=== PATIENT | male | born 1960 ===

== ENCOUNTER 2023-09-17 09:32 | Inpatient (IN) | payer MEDICARE, SELFPAY ==
--- NOTE | 2023-07-23 09:08 | CM ---
Addendum entered by Nga Vicente 09/12/23 08:41:
Patient's surgery date has changed to 09/17/23. Spoke again with patient. He states that he is using a cane currently and no longer has a rolling walker. He will obtain a walker from [facility]. He continues to state that he will need VN services.
Original Note:
Patient is scheduled for an elective R TKR on 08/06/23. Spoke with patient prior to surgery via telephone. Introduced role of Orthopedic Navigator. Patient reports that he lives alone in a one floor condo. There are no steps to enter and building is
elevator accessible. He currently functions independently and uses either a cane or rolling walker. He has no other DME. He has had VN services in the past. PCP is Dr. Tony Abad.
Discussed orthopedic program and post surgical plans. Reviewed anticipated length of stay and that goal is for home to return home at discharge. Also reviewed outpatient PT. Patient is in agreement with tentative plan but will not have
transportation for outpatient PT and will need VN services. He will not have anyone staying with him when he goes home.
Patient will complete online education.
Plan: Orthopedic Navigator will remain available to assist with the care of patient and will reassess discharge needs after surgery.
[2023-07-26 12:58] VITALS: BMI 34.2
[2023-07-26 13:48] LABS: Hematocrit 45.1 % (39.0-52.0); Hemoglobin 16.1 g/dL (13.0-18.0); Mean Corp Hgb Conc. 35.7 g/dL (33.0-37.0); Mean Corpuscular Hgb 30.8 pg (27.0-31.0); Mean Corpuscular Volume 86.2 fL (80.0-94.0); Platelet Count 153 10^3/uL (130-400); Red Blood Cell Count 5.23 10^6/uL (4.70-6.10); Red Cell Dist. Width 12.4 % (11.5-14.5); White Blood Cell Count 5.1 10^3/uL (4.8-10.8)
[2023-07-26 14:03] LABS: Glycohemoglobin (HgbA1c) 6.3 % (4.0-5.6)
[2023-07-26 14:05] LABS: ALT (SGPT) 23 U/L (0-50); AST (SGOT) 37 U/L (17-59); Albumin 4.8 g/dl (3.5-5.0); Alkaline Phosphatase 52 U/L (38-126); Blood Urea Nitrogen 25 mg/dl (9-20); Calcium 9.8 mg/dl (8.4-10.2); Carbon Dioxide 26 mmol/L (22-30); Chloride 99 mmol/L (98-107); Estimated Creatinine Clearance 93 ml/min; Glucose 155 mg/dl (70-99); Potassium 4.3 mmol/L (3.5-5.1); Sodium 137 mmol/L (135-145); Total Bilirubin 1.4 mg/dl (0.2-1.3); Total Protein 7.6 g/dl (6.3-8.2); eGFR > 60.00
[2023-07-26 15:48] VITALS: BMI 34.2
--- NOTE | 2023-07-30 09:37 | SLEEP.APNEA ---
Sleep Apnea Order
-
Patient screened as High Risk for Sleep Apnea on Stop Bang Questionnaire. Patient referred to [facility] for Pre-Study.

Name: MAIKEL SINHA
: 1960
Home Phone: Use [employer].PrimaryPhone instead
Cell Phone: [f_Reg Other Phone]
Work Phone:
Address: [address] [place] [address]
City: [place]
State: [place]
Zip: [f_[facility] Zip]
Family Physician: Tony Abad
Height 5 ft 10 in
Actual Weight 108 kg
Body Mass Index (BMI) 34.2
Ordering Provider: Malinda Chao PA-C
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
[2023-09-17] VITALS (13 sets, daily range): BP systolic 93–128; BP diastolic 56–72; PULSE 81; BMI 34.2
[2023-09-17] MEDS: NORMOSOL-R 1000 IV ×2 (09:18→12:52)
[2023-09-17] MEDS: VANCOCIN 300 MG IV (09:44)
[2023-09-17] MEDS: VANCOCIN 300 ML IV (09:44)
[2023-09-17] MEDS: ROXICODONE 5 MG PO (13:57)
--- NOTE | 2023-09-17 14:45 | PTCARENOTE ---
Pt arrived to [facility] [address] from PACU s/p R TKR. R Knee Aquacel C/D/I, NV intact with mild sensation loss-spinal still wearing off. IVF infusing. Pt states no pain at this time. Pt oriented to call [place] and room, bed locked and in lowest position, call
[place] within reach.
[2023-09-17] MEDS: TYLENOL PO ×2 (15:04→15:35)
[2023-09-17] MEDS: PROZAC 20 MG PO (15:32)
[2023-09-17] MEDS: NEURONTIN 300 MG PO (15:33)
[2023-09-17] MEDS: ROXICODONE 10 MG PO ×2 (16:17→20:30)
[2023-09-17] MEDS: ASPIRIN 325 MG PO (17:14)
[2023-09-17] MEDS: ANCEF 5 IV (19:10)
[2023-09-17] MEDS: SENOKOT 17.1999999999999993 MG PO (19:16)
[2023-09-17] MEDS: BACTROBAN 2% OINTMENT 1 APPLIC NASAL (19:16)
[2023-09-17] MEDS: COLACE 100 MG PO (19:16)
[2023-09-17] MEDS: KLONOPIN 1 MG PO (19:17)
[2023-09-17] MEDS: KEPPRA 1500 MG PO (19:17)
[2023-09-17] MEDS: DECADRON 4 MG PO (19:17)
[2023-09-17] MEDS: TYLENOL 650 MG PO (19:18)
[2023-09-17] MEDS: NEURONTIN 1200 MG PO (21:50)
[2023-09-17] MEDS: PROTONIX 40 MG PO (21:52)
[2023-09-17] MEDS: DILAUDID 0.5 MG IV (21:52)
[2023-09-17] MEDS: FLOMAX 0.400000000000000022 MG PO (21:52)
--- NOTE | 2023-09-17 22:20 | PTCARENOTE ---
pt premedicated prior to ambulating the halls w/RW under nursing supervision. reviewed proper technique.
[2023-09-18] MEDS: ROXICODONE 10 MG PO ×3 (00:13→08:33)
[2023-09-18] MEDS: TYLENOL 650 MG PO ×3 (00:13→08:30)
[2023-09-18 03:43] VITALS: BP 108/51
[2023-09-18] MEDS: ANCEF 5 IV (04:21)
[2023-09-18] MEDS: DILAUDID 0.5 MG IV (05:05)
[2023-09-18] MEDS: SYNTHROID 50 MCG PO (05:05)
[2023-09-18 07:34] VITALS: BP 117/65
[2023-09-18] MEDS: SENOKOT 17.1999999999999993 MG PO (08:30)
[2023-09-18] MEDS: KLONOPIN 1 MG PO (08:30)
[2023-09-18] MEDS: COLACE 100 MG PO (08:30)
[2023-09-18] MEDS: BACTROBAN 2% OINTMENT 1 APPLIC NASAL (08:30)
[2023-09-18] MEDS: KEPPRA 1500 MG PO (08:30)
[2023-09-18] MEDS: PROZAC 20 MG PO (08:31)
[2023-09-18] MEDS: DECADRON 4 MG PO (08:31)
[2023-09-18] MEDS: ASPIRIN 325 MG PO (08:31)
[2023-09-18] MEDS: NEURONTIN 300 MG PO (08:31)
[2023-09-18] MEDS: PROZAC 40 MG PO (08:31)
--- NOTE | 2023-09-18 08:37 | CM ---
Addendum entered by Nga Vicente 09/18/23 11:35:
Patient did well in therapy. He has no concerns about going home.
Addendum entered by Nga Vicente 09/18/23 08:39:
Discharge plans were reviewed with patient's friend, Yen, on 09/17/23.
Original Note:
Reviewed chart and held rounds with PT, OT and nursing. Patient admitted as planned for elective R TKR. Met with patient at bedside. Confirmed information previously obtained for assessment. Also discussed discharge plans. The plan is for patient to
return home at discharge. His friend, Yen, will be staying with him for two days. Reviewed VN services including start of care (tentatively 09/19), services to be ordered (PT, SN) and frequency/duration of services. Options list provided and PAC
data reviewed. Patient selects VN.
Patient has a rolling walker and a cane at home.
VN referral was completed and sent to [facility] through [employer] with request for start of care on 09/19. Confirmation received of their ability to accept case. file clerk to fax discharge instructions to [facility] when complete.
Patient will use [facility] for discharge prescriptions.
[2023-09-18 09:30] VITALS: BP 123/56; PULSE 73
--- NOTE | 2023-09-18 09:38 | W.PN.ORTHO ---
Today's Communication / Plan
-
d/c
Assessment
.
Distal Motor Intact: Yes
Dressing:
Clean, dry and intact.
Assessment:
Chronic pain-on Subtex-continue home regimen and prn Oxy--pain well controlled
Plan
.
Surgery / Date: O/A s/p R TKA Dr. Kendall 09/17/23
DVT Prophylaxis: Aspirin
Activity:
Out of bed.
PT/OT
Discharge Plan: Home w/ VN
Subjective
.
.:
Patient resting comfortably.
Vital Signs and Labs
.
Vital Signs and Labs:
Lab Results
07/26/23 12:41
07/26/23 12:41
Temp Pulse Resp BP Pulse Ox
97.6 F 69 19 117/65 98
09/18/23 07:34 09/18/23 07:34 09/18/23 07:34 09/18/23 07:34 09/18/23 08:00
Non-invasive Hgb result: 14.0
Physical Exam
-
HEENT: No pallor, cyanosis, or jaundice. Throat clear.
NECK: Supple. No JVD.
RESPIRATORY: Lungs clear to auscultation.
CVS: S1, S2 normal. RRR.� No murmur, rub or gallop.
ABDOMEN: Soft, non-tender. No distension. BS+/normal.
EXTREMITIES: strength equal, no calf pain with palpation
BOTTLE CAPPING MACHINE OPERATOR: AOx3. No focal deficits. materials handler grossly intact
--- NOTE | 2023-09-18 09:49 | W.DS.TRANS ---
DC Summary - School Library Media Specialist
-
Discharge Instructions:
Sleep Apnea Risk High
Discharge Diagnosis/Procedures O/A s/p R TKA Dr. Kendall 09/17/23
Diet As tolerated
Activity With Walker
Driving Restrictions No driving
Bathing Restrictions OK to Shower
Other Services PT,VN
Instructions:
Stand-Alone Forms: Total Hip/Knee Replacement D/C
Changes to Home Medications: Yes
Discharge Medications:
DC Medications w/original date entered in [employer]
clonazepam 1 mg tablet 1 mg PO BID 07/23/23
fluoxetine 20 mg capsule (Prozac) 20 mg PO DAILY 07/23/23
fluoxetine 40 mg capsule (Prozac) 40 mg PO DAILY 07/23/23
gabapentin 300 mg capsule 1,200 mg PO HS 07/23/23
gabapentin 300 mg capsule 300 mg PO BID 07/23/23
levetiracetam 1,000 mg tablet (Keppra) 1,500 mg PO BID 07/23/23
levothyroxine 50 mcg tablet 50 mcg PO DAILY@0700 07/23/23
pantoprazole 40 mg tablet,delayed release (Protonix) 40 mg PO DAILY 07/23/23
rizatriptan 5 mg tablet 5 mg PO PRN PRN Migraines 07/23/23
sucralfate 1 gram tablet (Carafate) 1 g PO BID 07/23/23
tamsulosin 0.4 mg capsule (Flomax) 0.4 mg PO HS 07/23/23
mupirocin 2 % topical ointment 1 applic topical BID infection prevention #1 tube 07/26/23
buprenorphine 8 mg-naloxone 2 mg sublingual tablet 1 tab sublingual DAILY 09/12/23
Saccharomyces boulardii 250 mg capsule (Florastor) 250 mg PO BID #1 cap 09/18/23
aspirin 325 mg tablet 325 mg PO DAILY blood clot prevention #1 tab 09/18/23
cefadroxil 500 mg capsule 500 mg PO BID infection prevention #14 caps 09/18/23
docusate sodium 100 mg capsule (Colace) 100 mg PO BID stool softner #1 cap 09/18/23
magnesium hydroxide 400 mg/5 mL oral suspension (Milk of Magnesia) 30 ml PO HS PRN Constipation #1 mL 09/18/23
oxycodone 15 mg tablet 15 mg PO Q6H PRN MODERATE-SEVERE PAIN #60 tabs 09/18/23
sennosides 8.6 mg tablet (Senokot) 17.2 mg PO BID laxative #2 tabs 09/18/23
Home Medication Changes
cefadroxil 500 mg capsule 500 mg PO BID infection prevention #14 caps 09/18/23
Pending Results: No
[2023-09-18 11:20] VITALS: BP 108/65; PULSE 87; O2SAT 98
== END 2023-09-18 12:16 | disposition home health service (06) | DRG 470 ==
LOC: 2 SOUTH 09:32
PROVIDERS: ADMITTING PHYSICIAN Specialist; FAMILY PHYSICIAN Family Medicine Sports Medicine
PROC: 0SRC0J9 Replacement of Right Knee Joint with Synthetic Substitute, Cemented, Open Approach (ICD-10-PCS; 2023-09-17)
DX: M17.11 Unilateral primary osteoarthritis, right knee (principal); Z68.34 Body mass index [BMI] 34.0-34.9, adult; E66.9 Obesity, unspecified; Z87.01 Personal history of pneumonia (recurrent); K21.9 Gastro-esophageal reflux disease without esophagitis; F43.10 Post-traumatic stress disorder, unspecified; G62.9 Polyneuropathy, unspecified; G40.909 Epilepsy, unspecified, not intractable, without status epilepticus; K75.81 Nonalcoholic steatohepatitis (NASH); E03.9 Hypothyroidism, unspecified; Z85.46 Personal history of malignant neoplasm of prostate; Z92.21 Personal history of antineoplastic chemotherapy; Z92.3 Personal history of irradiation; Z86.14 Personal history of Methicillin resistant Staphylococcus aureus infection; G89.29 Other chronic pain; F32.A Depression, unspecified
CPT/HCPCS: 36415; 73560; 80053; 83036; 85027; 87070; 93005; 97116; 97162; 97166; 97530; C1713; C1776

== ENCOUNTER 2023-11-13 15:15 | Emergency (ER) | payer MEDICARE, SELFPAY ==
[2023-11-13 15:21] VITALS: BP 149/122; BMI 33.4
[2023-11-13 15:38] LABS: Urine Albumin Negative (Neg - Trace); Urine Bilirubin Negative (Negative); Urine Character Clear (Clear); Urine Color Yellow; Urine Glucose Negative (Negative); Urine Ketone Negative (Negative); Urine Leukocyte Negative (Negative); Urine Nitrite Negative (Negative); Urine Occult Blood Negative (Negative); Urine Urobilinogen 2+ (Neg - 1+)
--- NOTE | 2023-11-13 16:04 | ED.GENMED ---
History of Present Illness
General
Chief Complaint: Back Pain
Source: patient
Exam Limitations: none
Time Seen by Provider: 11/13/23 15:38
Travel History
Have you had any contact with someone who has COVID-19?: No
Do you have any symptoms of coronavirus? Fever > 100 degrees, chills, cough, shortness of breath, sore throat, loss of taste or smell, muscle aches, or headache?: No
History of Present Illness
History of Present Illness:
63-year-old male presents with complaints of intermittent pain to the right flank over the past several days. It is a spasm-like pain. Occasionally goes down his leg. No associated urinary symptoms. No fever. No chest pain or shortness of
breath. He has a history of neuropathy. He is on Subutex. He is on gabapentin. He has a remote history of kidney stones and this feels somewhat similar. No other complaints at this time
Phy Exam
Physical Exam
Physical Exam:
General: Uncomfortable appearing male no acute respiratory distress
HEENT: Normocephalic atraumatic
Heart: Regular rate and rhythm no murmurs
Lungs: Clear to bilaterally no wheezing
Musculoskeletal exam: Right costovertebral angle is tender. No significant midline tenderness. Good range of motion to the lower extremities
Abdomen is soft mildly tender to the right mid abdomen no guarding or rebound
Course
Orders/Labs/Results
Orders:
Orders
11/13/23 15:29
Urinalysis Reflex To Culture Urgent
Date Specimen was Collected: 11/13/23
Time Specimen was Collected: 15:28
11/13/23 15:47
CT Abd/pel Without Iv Or Oral Urgent
Comment:
Reason For Exam: right flank pain
HYDROmorphone [Dilaudid] 1 mg IV NOW STA
11/13/23 16:08
Complete Blood Count/With Diff Urgent
Comprehensive Metabolic Panel Urgent
11/13/23 16:37
diazePAM [Valium Injection] 5 mg IV NOW STA
11/13/23 18:20
Dexamethasone Sod Phosphate [Decadron] 10 mg IV NOW STA
HYDROmorphone [Dilaudid] 1 mg IV NOW STA
Abnormal Lab Results
11/13/23 11/13/23
15:29 16:08
WBC 4.4 L 10^3/uL
(4.8-10.8)
Plt Count 127 L 10^3/uL
(130-400)
MPV 11.4 H fL
(7.4-10.4)
BUN 23 H mg/dl
(9-20)
Glucose 140 H mg/dl
(70-99)
Urine Urobilinogen 2+ A
(Neg - 1+)
11/13/23 16:08
11/13/23 16:08
Vital Signs
Initial and Last Documented VS:
Initial Vital Signs
Temp Pulse Resp BP Pulse Ox
98.5 F 74 18 149/122 98
11/13/23 15:21 11/13/23 15:21 11/13/23 15:21 11/13/23 15:21 11/13/23 15:21
Last Documented Vital Signs
Temp Pulse Resp BP Pulse Ox
98.6 F 70 16 118/79 98
11/13/23 17:37 11/13/23 17:37 11/13/23 17:37 11/13/23 17:37 11/13/23 17:37
MDM/Problems Addressed
Differential Diagnosis Includes:
Patient with intermittent right flank pain. Consider renal colic versus musculoskeletal flank pain radiculopathy. No rash to suggest shingles.
He has good pulses on exam to the lower extremities. Do not suspect vascular compromise to the legs
Will check CT of the abdomen and pelvis check urine and labs. Patient is unable to tolerate Tylenol or NSAIDs. He is in significant pain.
*Critical Care Note
Total Time (30-74mins, 75-104mins- exclusive of procedures): Not Applicable
Update Note
Update Note:
CT negative for acute finding other than a large amount of stool throughout the colon. There is a rim calcified cyst in the superior dome of the liver. No ureterolithiasis. Patient still in significant pain. Will try 1 more round of pain
medicine with steroid. Suspect now muscular versus radicular pain.
ED Attending Note
-
Portions of this chart may have been created with voice recognition software.� Occasional wrong word or��sound alike� substitutions may have occurred due to the inherent limitations of voice recognition software.
Discharge Plan
Departure
Patient Disposition: Home (Routine Discharge)
Date of Disposition: 11/13/23
Time of Disposition: 18:33
Patient with high blood pressure during this ER visit?: No
Discharge Problem:
Low back pain
Instructions: Low Back Pain (DC), Radiculopathy (DC)
Prescriptions:
New
prednisone 10 mg Tablet
See Rx Instructions .ROUTE .COMPLEX Qty: 30 0RF
Rx Instructions:
Take By Mouth:
40 mg daily x3 days, 30 mg daily x3 days,
20 mg daily x3 days, 10 mg daily x3 days.
No Action
fluoxetine [Prozac] 40 mg Capsule
40 mg PO DAILY
Rx Instructions:
total 60 mg daily
sucralfate [Carafate] 1 gram Tablet
1 g PO BID
clonazepam 1 mg Tablet
1 mg PO BID
Patient Comments:
takes with Keppra
tamsulosin [Flomax] 0.4 mg Capsule
0.4 mg PO HS
levothyroxine 50 mcg Tablet
50 mcg PO DAILY@0700
pantoprazole [Protonix] 40 mg Tablet,Delayed Release (Dr/Ec)
40 mg PO DAILY
gabapentin 300 mg Capsule
900 mg PO BID
Patient Comments:
0800;1400
gabapentin 300 mg Capsule
1,200 mg PO HS
fluoxetine [Prozac] 20 mg Capsule
20 mg PO DAILY
Rx Instructions:
total 60mg daily
rizatriptan 5 mg Tablet
5 mg PO PRN MDD 20 mg PRN (Reason: Migraines)
Patient Comments:
Q2 hrs- max 4 tabs
levetiracetam [Keppra] 1,000 mg Tablet
1,500 mg PO BID
buprenorphine-naloxone 8-2 mg Tablet, Sublingual
1 tab SUBLINGUAL DAILY
Patient Comments:
'took 4 mg this am'
sennosides [Senokot] 8.6 mg tablet
17.2 mg PO BID Qty: 2 0RF
magnesium hydroxide [Milk of Magnesia] 400 mg/5 mL suspension
30 ml PO HS PRN (Reason: Constipation) Qty: 1 0RF
docusate sodium [Colace] 100 mg capsule
100 mg PO BID Qty: 1 0RF
cefadroxil 500 mg capsule
500 mg PO BID Qty: 14 0RF
Rx Instructions:
*Take w/ food
*Take w/ probiotic
*POST-OP USE
Referrals:
Tony Abad DO [Family Provider] -
Interventions
Interventions:
*Risk Screen - Suicide Last Done: 11/13/23 15:21
*General Assessment Last Done: 11/13/23 15:21
*Neglect/Abuse Screening Last Done: 11/13/23 15:21
*ED COVID-19 Vaccine History Last Done: 11/13/23 15:21
ED-Musculoskeletal Assessment Last Done: 11/13/23 18:23
[2023-11-13] MEDS: DILAUDID 1 MG IV ×2 (16:08→18:31)
[2023-11-13 16:30] LABS: % Basophils 0.9 % (0-2); % Immature Granulocytes 0.2 % (0-0.5); % Lymphocytes 28.1 % (20.5-51.1); % Monocytes 8.8 % (1.7-9.3); Absolute Eosinophils 0.2 10^3/uL (0-0.7); Absolute Lymphocytes 1.2 10^3/uL (1.2-3.4); Absolute Monocytes 0.4 10^3/uL (0.1-0.6); Absolute Neutrophils 2.5 10^3/uL (1.4-6.5); Hematocrit 41.2 % (39.0-52.0); Hemoglobin 14.3 g/dL (13.0-18.0); Mean Corp Hgb Conc. 34.7 g/dL (33.0-37.0); Mean Corpuscular Volume 86.6 fL (80.0-94.0); Mean Platelet Volume 11.4 fL (7.4-10.4); Nucleated Red Blood Cells % 0 % (-); Platelet Count 127 10^3/uL (130-400); Red Blood Cell Count 4.76 10^6/uL (4.70-6.10); Red Cell Dist. Width 12.2 % (11.5-14.5); White Blood Cell Count 4.4 10^3/uL (4.8-10.8)
[2023-11-13 16:41] LABS: ALT (SGPT) 15 U/L (0-50); AST (SGOT) 24 U/L (17-59); Albumin 4.5 g/dl (3.5-5.0); Alkaline Phosphatase 69 U/L (38-126); Blood Urea Nitrogen 23 mg/dl (9-20); Calcium 9.9 mg/dl (8.4-10.2); Carbon Dioxide 28 mmol/L (22-30); Chloride 99 mmol/L (98-107); Estimated Creatinine Clearance 89 ml/min; Glucose 140 mg/dl (70-99); Potassium 3.9 mmol/L (3.5-5.1); Sodium 135 mmol/L (135-145); Total Bilirubin 0.6 mg/dl (0.2-1.3); eGFR > 60.00
[2023-11-13] MEDS: VALIUM INJECTION 5 MG IV (16:41)
[2023-11-13 17:37] VITALS: BP 118/79
[2023-11-13] MEDS: DECADRON 10 MG IV (18:31)
[2023-11-13 18:59] VITALS: BP 119/79
== END 2023-11-13 18:59 | disposition home or self-care (01) ==
LOC: EMR 15:15
PROVIDERS: Emergency Medicine; Physician Assistant; EMERGENCY PHYSICIAN Emergency Medicine; FAMILY PHYSICIAN Family Medicine Sports Medicine
DX: M54.50 Low back pain, unspecified (principal); K76.89 Other specified diseases of liver; Z87.442 Personal history of urinary calculi
CPT/HCPCS: 99284; 96374; 96375 ×2; 96376; 74176; 80053; 81003; 85025

== ENCOUNTER 2023-12-03 06:14 | Inpatient (IN) | payer MEDICARE, SELFPAY ==
--- NOTE | 2023-11-08 13:01 | CM ---
Patient is scheduled for an elective L TKR on 12/03/23. Spoke with patient prior to surgery via telephone. Patient had a R TKR at in August 2023. Reintroduced role of Orthopedic Navigator. Patient reports that he lives alone in a one floor condo.
There are no steps to enter and building is elevator accessible. He currently functions independently and uses a cane. He also has a rolling walker. He had VN services through [facility]N after his prior TKR.
Discussed orthopedic program and post surgical plans. Reviewed anticipated length of stay and that goal is for home to return home at discharge. Also reviewed outpatient PT. Patient is in agreement with tentative plan but will not have
transportation for outpatient PT and will need VN services. Reviewed options and PAC data and he selects VN. His friend, Yen, will stay with him when he goes home.
Patient does not need to complete online education.
Plan: Orthopedic Navigator will remain available to assist with the care of patient and will reassess discharge needs after surgery.
[2023-11-16 13:33] LABS: Hematocrit 41.1 % (39.0-52.0); Hemoglobin 14.6 g/dL (13.0-18.0); Mean Corp Hgb Conc. 35.5 g/dL (33.0-37.0); Mean Corpuscular Hgb 30.7 pg (27.0-31.0); Mean Corpuscular Volume 86.3 fL (80.0-94.0); Mean Platelet Volume 11.9 fL (7.4-10.4); Platelet Count 138 10^3/uL (130-400); Red Blood Cell Count 4.76 10^6/uL (4.70-6.10); Red Cell Dist. Width 12.5 % (11.5-14.5)
[2023-11-16 13:46] LABS: ALT (SGPT) 18 U/L (0-50); AST (SGOT) 24 U/L (17-59); Albumin 4.7 g/dl (3.5-5.0); Alkaline Phosphatase 89 U/L (38-126); Blood Urea Nitrogen 25 mg/dl (9-20); Calcium 9.5 mg/dl (8.4-10.2); Carbon Dioxide 23 mmol/L (22-30); Chloride 101 mmol/L (98-107); Glucose 247 mg/dl (70-99); Potassium 3.7 mmol/L (3.5-5.1); Sodium 133 mmol/L (135-145); Total Bilirubin 0.7 mg/dl (0.2-1.3); Total Protein 7.4 g/dl (6.3-8.2); eGFR > 60.00
--- NOTE | 2023-11-30 12:21 | W.PREADMORTH ---
Ortho Preadmission Testing
-
Late entry - did discuss the patient's elevated A1c with him over the phone pre-operatively.
Although I believe recent steroid use from chronic back pain likely drove up his A1c, I did ask the patient about his overall diet.
He did admit to eating a 'whole cheesecake' weekly and to consuming 2-3 Snapple peach ice teas daily.
Pt said hes not entirely surprised his A1c is the way it is.
He is very motivated to adjust his diet and follow a strict carb controlled diet marguerite-op.
I did also discuss his A1c w/ his PCP. He would prefer dietary management at this time over initiating diabetic meds.
[2023-12-03] VITALS (12 sets, daily range): BP systolic 105–136; BP diastolic 64–81; PULSE 89; O2SAT 95
[2023-12-03 07:26] LABS: Glucose - Point of Care 158 mg/dl (70-99)
[2023-12-03] MEDS: NEURONTIN 900 MG PO ×2 (07:45→14:12)
[2023-12-03] MEDS: NORMOSOL-R 1000 IV (07:45)
[2023-12-03] MEDS: BACTROBAN NASAL 1 GRAM NASAL (07:45)
[2023-12-03 10:01] LABS: Glucose - Point of Care 146 mg/dl (70-99)
[2023-12-03] MEDS: NSS 1000 IV (10:41)
[2023-12-03] MEDS: ROXICODONE 7.5 MG PO (10:48)
--- NOTE | 2023-12-03 11:14 | W.PN.ORTHO ---
Today's Communication / Plan
-
D/c when clinically stable.
Assessment
.
Distal Motor Intact: Yes
Dressing:
Clean, dry and intact.
Assessment:
L knee OA s/p L TKA w/ Dr Kendall 12/03/23
- s/p R TKA, 08/2023, by Dr Kendall
DVT prophylaxis - ASA, b/l venous foot pumps
History of recurrent pneumonia
Probable obstructive sleep apnea, sleep study pending
- Monitor O2
- IS
- Cefadroxil upon d/c
GERD and recurrent GI bleeds - continue Protonix
GIVENS - minimize Tylenol/NSAIDs
Chronic constipation - Miralax/Colace/Senna
Seizure disorder, last seizure 2019 - continue Keppra
Peripheral neuropathy - continue Gabapentin
Chronic pain syndrome - pain mgmt by Dr. Brizuela post-op
- Continue Suboxone as advised by Dr. Brizuela
BPH with LUTS - monitor voids
- Add daily Flomax
Elevated hemoglobin A1c, likely secondary to recent steroids - monitor BS
- Diabetic, carb controlled diet
- Add SSI during admission
Nephrolithiasis
Hepatitis C, status post treatment
Migraines
Hypothyroidism
Prostate cancer, 2010, status post chemotherapy with recurrence in 2021, status post chemotherapy and radiation
Depression
Anxiety
PTSD
History of MRSA; two negative MRSA screens since diagnosis
Hearing impairment bilaterally
Mild hyponatremia
Obesity, BMI 33.4
Plan
.
Surgery / Date: L TKA w/ Dr Kendall 12/03/23
DVT Prophylaxis: Aspirin
Activity:
Out of bed.
PT/OT
Discharge Plan: Home w/ VN
Subjective
.
.:
Patient resting comfortably in PACU.
L knee pain minimal and currently well tolerated.
Denies any new significant complaints.
Vital Signs and Labs
.
Vital Signs and Labs:
Lab Results
11/16/23 12:47
11/16/23 12:47
Temp Pulse Resp BP Pulse Ox
98 F 90 18 105/75 98
12/03/23 07:35 12/03/23 07:35 12/03/23 07:35 12/03/23 07:35 12/03/23 07:35
Physical Exam
-
HEENT: No pallor, cyanosis, or jaundice. Throat clear.
NECK: Supple. No JVD.
RESPIRATORY: Lungs clear to auscultation.
CVS: S1, S2 normal. RRR.�
ABDOMEN: Soft, non-tender. No distension.
EXTREMITIES: Strength equal, no calf pain with palpation/dorsiflexion. Calves soft.
COORDINATOR OF LIBRARY SERVICES: AOx3. No focal deficits. salesforce specialist grossly intact
--- NOTE | 2023-12-03 11:29 | PTCARENOTE ---
Patient received from PACU in bed; IVF infusing; Surgical site assessed with SOLVENT STATION ATTENDANT, left knee kyle C/D/I; Bilateral pedal pulses +2; Patient with baseline neuropathy of RLE, full sensation to LLE; Patient oriented to room and unit; Family
friend at bedside; Call [place] within reach; Bed in lowest position, wheels locked; Assessment ongoing
[2023-12-03 11:39] LABS: Glucose - Point of Care 167 mg/dl (70-99)
[2023-12-03] MEDS: MIRALAX PO ×2 (11:50→11:53)
[2023-12-03] MEDS: OXYCONTIN (CONTROLLED RELEASE) 10 MG PO ×2 (11:50→21:04)
[2023-12-03] MEDS: FLOMAX 0.400000000000000022 MG PO (11:50)
[2023-12-03] MEDS: PROZAC 40 MG PO (11:50)
[2023-12-03] MEDS: PROZAC 20 MG PO (11:50)
[2023-12-03] MEDS: NOVOLOG FLEXPEN-MODERATE RESISTANCE 1 UNITS SC (12:13)
[2023-12-03] MEDS: LIDOCAINE 4% PATCH 2 PATCH TOPICAL (14:12)
[2023-12-03] MEDS: ANCEF 5 IV (15:27)
[2023-12-03 16:54] LABS: Glucose - Point of Care 248 mg/dl (70-99)
[2023-12-03] MEDS: NOVOLOG FLEXPEN-MODERATE RESISTANCE 3 UNITS SC (17:10)
[2023-12-03] MEDS: ASPIRIN 325 MG PO (17:11)
[2023-12-03] MEDS: NEURONTIN 1200 MG PO (21:04)
[2023-12-03] MEDS: BACTROBAN 2% OINTMENT 1 APPLIC NASAL (21:04)
[2023-12-03] MEDS: KEPPRA 1500 MG PO (21:05)
[2023-12-03] MEDS: SENOKOT 17.1999999999999993 MG PO (21:05)
[2023-12-03] MEDS: COLACE 100 MG PO (21:05)
[2023-12-03] MEDS: KLONOPIN 1 MG PO (21:05)
[2023-12-03] MEDS: ROXICODONE 15 MG PO (21:42)
[2023-12-03 22:52] LABS: Glucose - Point of Care 160 mg/dl (70-99)
[2023-12-03] MEDS: MAXALT MLT (ORALLY DISINTEGRATING) 5 MG PO (23:40)
[2023-12-04] MEDS: ANCEF 5 IV (00:07)
[2023-12-04 03:41] VITALS: BP 100/64
[2023-12-04] MEDS: ROXICODONE 15 MG PO ×4 (03:48→23:16)
[2023-12-04] MEDS: SYNTHROID 50 MCG PO (06:10)
[2023-12-04 07:16] LABS: Glucose - Point of Care 173 mg/dl (70-99)
[2023-12-04] MEDS: OXYCONTIN (CONTROLLED RELEASE) 10 MG PO ×3 (07:21→23:16)
[2023-12-04] MEDS: NEURONTIN 900 MG PO ×2 (07:21→14:16)
[2023-12-04] MEDS: LIDOCAINE 4% PATCH 2 PATCH TOPICAL (07:22)
[2023-12-04] MEDS: PROZAC 40 MG PO (07:25)
[2023-12-04] MEDS: MIRALAX PO (07:25)
[2023-12-04] MEDS: FLOMAX 0.400000000000000022 MG PO (07:25)
[2023-12-04] MEDS: PROTONIX 40 MG PO (07:25)
[2023-12-04] MEDS: ASPIRIN 325 MG PO (07:25)
[2023-12-04] MEDS: PROZAC 20 MG PO (07:25)
[2023-12-04] MEDS: KEPPRA 1500 MG PO ×2 (07:25→19:40)
[2023-12-04] MEDS: KLONOPIN 1 MG PO ×2 (07:26→19:40)
[2023-12-04] MEDS: COLACE 100 MG PO ×2 (07:26→19:39)
[2023-12-04] MEDS: SENOKOT 17.1999999999999993 MG PO ×2 (07:26→19:39)
[2023-12-04] MEDS: BACTROBAN 2% OINTMENT 1 APPLIC NASAL ×2 (07:27→19:48)
[2023-12-04] MEDS: NOVOLOG FLEXPEN-MODERATE RESISTANCE 1 UNITS SC ×2 (07:28→16:56)
[2023-12-04 07:47] VITALS: BP 124/74
--- NOTE | 2023-12-04 08:32 | CM ---
Addendum entered by Nga Vicente 12/04/23 13:49:
Patient will not be discharged today due to ongoing pain issues. VN updated and start of care changed to 12/05.
Original Note:
Reviewed chart and held rounds with PT, OT and nursing. Patient admitted as planned for elective L TKR. Met with patient at bedside. Confirmed information previously obtained for assessment. Also discussed discharge plans. The plan is for patient to
return home at discharge. His fiance, Yen, will be staying with him initially. Reviewed VN services including start of care (tentatively 12/04), services to be ordered (PT, SN) and frequency/duration of services. Options list provided and PAC data
reviewed. Patient selects VN.
Patient has a rolling walker and a cane at home.
VN referral was completed and sent to [facility] through [email or web address] with request for start of care on 12/04. Confirmation received of their ability to accept case. auction block clerk to fax discharge instructions to [facility] when complete.
[facility] for [facility].
[2023-12-04] MEDS: ROXICODONE 5 MG PO (09:42)
[2023-12-04] MEDS: LIDOCAINE 4% PATCH 1 PATCH TOPICAL (09:42)
[2023-12-04] MEDS: TORADOL 30 MG IV (10:13)
[2023-12-04 10:55] VITALS: BP 139/73; PULSE 91; O2SAT 94
[2023-12-04] MEDS: LIORESAL 10 MG PO (11:23)
[2023-12-04 11:37] VITALS: BP 125/64
[2023-12-04 11:41] LABS: Glucose - Point of Care 213 mg/dl (70-99)
[2023-12-04] MEDS: NOVOLOG FLEXPEN-MODERATE RESISTANCE 3 UNITS SC (11:41)
--- NOTE | 2023-12-04 12:16 | W.PN.ORTHO ---
Today's Communication / Plan
-
Monitor pain. Continue to adjust pain meds as needed.
Work w/ PT and OT as able.
D/c when clinically stable.
Assessment
.
Distal Motor Intact: Yes
Dressing:
Clean, dry and intact.
Assessment:
L knee OA s/p L TKA w/ Dr Kendall 12/03/23
- s/p R TKA, 08/2023, by Dr Kendall
DVT prophylaxis - ASA, b/l venous foot pumps
Acute on chronic pain - likely 2* lapse in Oxycodone for severe breakthrough pain overnight - pain meds adjusted to include the following:
- IV Toradol x1; minimizing use, however, d/t GIVENS and h/o recurrent GI bleeds
- Baclofen x1
- Oxycodone adjusted to 15 mg q4hprn for mod breakthrough pain, 20 mg q4hprn for severe breakthrough pain
- Consider increase in Oxycontin from q12h to q8h
- Continue Lidocaine patches, Clonazepam BID, and Gabapentin
- Did talk to RN about keeping up w/ 4 hour intervals for Oxycodone given his h/o chronic pain; she will pass on to aircraft charter dispatcher should he stay overnight
- Continue to monitor
History of recurrent pneumonia
Probable obstructive sleep apnea, sleep study pending
- O2 stable on RA
- Continue IS
- Cefadroxil upon d/c
GERD and recurrent GI bleeds - continue Protonix
GIVENS - minimize Tylenol/NSAIDs
Chronic constipation - Miralax/Colace/Senna
Seizure disorder, last seizure 2019 - continue Keppra
Peripheral neuropathy - continue Gabapentin
Chronic pain syndrome - pain mgmt by Dr. Brizuela post-op
- Continue Suboxone as advised by Dr. Brizuela
BPH with LUTS - voiding appropriately w/ addition of daily Flomax
Elevated hemoglobin A1c, likely secondary to recent steroids - continue to monitor BS
- Diabetic, carb controlled diet
- SSI during admission
Nephrolithiasis
Hepatitis C, status post treatment
Migraines
Hypothyroidism
Prostate cancer, 2010, status post chemotherapy with recurrence in 2021, status post chemotherapy and radiation
Depression
Anxiety
PTSD
History of MRSA; two negative MRSA screens since diagnosis
Hearing impairment bilaterally
Mild hyponatremia
Obesity, BMI 33.4
Plan
.
Surgery / Date: L TKA w/ Dr Kendall 12/03/23
DVT Prophylaxis: Aspirin
Activity:
Out of bed.
PT/OT
Discharge Plan: Home w/ VN
Subjective
.
.:
Patient examined lying in bed this AM.
Significant L knee pain reported, likely due to lapse in Oxycodone for breakthrough pain overnight.
Denies any other new complaints.
Vital Signs and Labs
.
Vital Signs and Labs:
Lab Results
11/16/23 12:47
11/16/23 12:47
Temp Pulse Resp BP Pulse Ox
99.1 F 97 18 125/64 91
12/04/23 11:37 12/04/23 11:37 12/04/23 11:37 12/04/23 11:37 12/04/23 11:37
Non-invasive Hgb result: 12.1
Physical Exam
-
HEENT: No pallor, cyanosis, or jaundice. Throat clear.
NECK: Supple. No JVD.
RESPIRATORY: Lungs clear to auscultation.
CVS: S1, S2 normal. RRR.�
ABDOMEN: Soft, non-tender. No distension.
EXTREMITIES: Expected L knee post-surgical edema. Strength equal, no calf pain with palpation/dorsiflexion. Calves soft.
MARKETING INSTRUCTOR: AOx3. No focal deficits. fittings tightener grossly intact
[2023-12-04] MEDS: ROXICODONE 20 MG PO (12:22)
[2023-12-04 15:21] VITALS: BP 108/79
[2023-12-04] MEDS: SUBUTEX 8 MG SL (16:23)
[2023-12-04 16:45] LABS: Glucose - Point of Care 187 mg/dl (70-99)
[2023-12-04] MEDS: NOVOLOG FLEXPEN 2 UNITS SC (16:55)
[2023-12-04] MEDS: LYRICA 150 MG PO (19:39)
[2023-12-04 22:06] LABS: Glucose - Point of Care 205 mg/dl (70-99)
[2023-12-04 23:00] VITALS: BP 137/75
[2023-12-05] MEDS: ROXICODONE 5 MG PO (03:30)
[2023-12-05] MEDS: DILAUDID 0.5 MG IV (04:30)
--- NOTE | 2023-12-05 05:11 | W.PN.UPDATE ---
Update Note
Progress Note Update
RN notified FEATHER MAKER, Patient agitated due to pain and yelling out for more pain medicine. Patient seen and evaluated. Reports he has pain in his left leg 10/10 pain, Patient had received 5mg PO Oxycodone at 3AM. Reports feeling clammy and feeling his
knee is more warm and swollen than yesterday. left knee dressing in place, warmth and redness noted. + Pulses, sensation intact. Temp 100.5, 136/75, 98 92%, BS 233, Prn oxy 5mg given at 3 am, Labs ordered stat, Will give 0.5 mg IV Dilaudid. Will
order labs CBC, BMP, lactic acid, Procalcitonin for infection work up.
Labs noted. will start IV fluids. lactic acid q6h. RN will let ortho group aware.
Temp 99.0 now per RN.
--- NOTE | 2023-12-05 05:29 | DOWNTIME ---
There was a [employer] Client Certified [employer] Engineer Downtime on 12/05/2023 from 0100 to 12/05/2023 at 0439. Downtime documentation of patient's care, including medication administrations, has been reconciled in the electronic record per guidelines. Refer to the
patient's paper chart under the miscellaneous tab to see printed paper medication records and downtime forms.
[2023-12-05 05:41] LABS: Hematocrit 33.9 % (39.0-52.0); Hemoglobin 11.9 g/dL (13.0-18.0); Mean Corp Hgb Conc. 35.1 g/dL (33.0-37.0); Mean Corpuscular Hgb 29.6 pg (27.0-31.0); Mean Corpuscular Volume 84.3 fL (80.0-94.0); Mean Platelet Volume 10.9 fL (7.4-10.4); Platelet Count 152 10^3/uL (130-400); Red Blood Cell Count 4.02 10^6/uL (4.70-6.10); Red Cell Dist. Width 12.4 % (11.5-14.5); White Blood Cell Count 12.3 10^3/uL (4.8-10.8)
[2023-12-05 05:53] LABS: Lactic Acid 2.2 mmol/L (0.7-2.0)
[2023-12-05 06:07] LABS: Blood Urea Nitrogen 20 mg/dl (9-20); Calcium 9.6 mg/dl (8.4-10.2); Carbon Dioxide 26 mmol/L (22-30); Chloride 95 mmol/L (98-107); Glucose 224 mg/dl (70-99); Potassium 3.8 mmol/L (3.5-5.1); Sodium 128 mmol/L (135-145); eGFR > 60.00
[2023-12-05 06:10] LABS: Procalcitonin 0.15 ng/ml (0.0-0.25)
[2023-12-05] MEDS: ROXICODONE 15 MG PO (06:16)
[2023-12-05] MEDS: SYNTHROID 50 MCG PO (06:16)
[2023-12-05 07:20] VITALS: BP 140/77
--- NOTE | 2023-12-05 08:33 | CM ---
Addendum entered by Nga Vicente 12/05/23 13:56:
[facility] is unable to accept patient.
Spoke with Mary Ellen at [facility] ([phone]). She states that they can accept patient. . Attending will be Stevie Rubi NPI [phone]
Report: [phone]

Patient and fiance updated. They are in agreement with rehab at [facility] if patient doesn't show significant improvement by tomorrow.
Call placed to [employer] to initiate precert ([phone]); spoke with Rhett Hamilton Reference # [id number]. Clinicals faxed to [phone].
Addendum entered by Nga Vicente 12/05/23 13:14:
Anne also requested a referral be sent to [facility]; referral sent.
Addendum entered by Nga Vicente 12/05/23 12:56:
Met with patient and anneYen. Patient continues to have high levels of pain and is unable to fully participate with therapy. Discussed possible need for SNF. Both are agreeable. Reviewed options and PAC data. The select for referrals to be sent
to [facility] and [facility].
Referral and completed PASRR sent to [facility] and [facility]. Will follow up regarding acceptance and availability. Precert will be required.
Original Note:
Reviewed chart and held rounds with Malinda Chao, PA, PT, OT and nursing. Met with patient at bedside. Patient states he continues to have a lot of pain and that he isn't getting up until his pain is better. The discharge plan, at this time,
continues to be for patient to return home. His fiance will stay with him. VN services currently arranged for start of care on 12/05 through VN; will update VN and change start of care if necessary.
Patient has a rolling walker and a cane at home.
prescription clerk lenses to fax discharge instructions to VN when complete.
Patient will use [facility] pharmacy for discharge prescriptions.
[2023-12-05 08:37] LABS: Glucose - Point of Care 237 mg/dl (70-99)
[2023-12-05] MEDS: DILAUDID 6 MG PO ×3 (08:50→21:03)
[2023-12-05] MEDS: FLOMAX 0.400000000000000022 MG PO (08:50)
[2023-12-05] MEDS: SENOKOT PO ×3 (08:50→21:05)
[2023-12-05] MEDS: LYRICA 150 MG PO ×3 (08:50→21:52)
[2023-12-05] MEDS: SUBUTEX 8 MG SL (08:50)
[2023-12-05] MEDS: OXYCONTIN (CONTROLLED RELEASE) 10 MG PO (08:51)
[2023-12-05] MEDS: KEPPRA 1500 MG PO ×2 (08:51→21:02)
[2023-12-05] MEDS: MIRALAX PO ×2 (08:52→09:14)
[2023-12-05] MEDS: NOVOLOG FLEXPEN-MODERATE RESISTANCE 3 UNITS SC ×2 (08:52→13:52)
[2023-12-05] MEDS: PROTONIX 40 MG PO ×2 (08:52→21:03)
[2023-12-05] MEDS: ASPIRIN 325 MG PO (08:52)
[2023-12-05] MEDS: COLACE PO ×3 (08:52→21:05)
[2023-12-05] MEDS: KLONOPIN 1 MG PO (08:52)
[2023-12-05] MEDS: PROZAC PO (08:53)
[2023-12-05] MEDS: LIDOCAINE 4% PATCH 3 PATCH TOPICAL (08:54)
[2023-12-05] MEDS: NOVOLOG FLEXPEN SC ×2 (08:56→13:31)
[2023-12-05 09:13] LABS: Osmolality Serum 283 mOsm/kg (275-300)
--- NOTE | 2023-12-05 09:51 | W.PN.ORTHO ---
Today's Communication / Plan
-
Work w/ PT and OT as able.
Continue to trend temp, pain.
D/c when clinically stable.
Assessment
.
Distal Motor Intact: Yes
Dressing:
Scant areas of old incisional bleeding. Dressing otherwise C/D/I.
Assessment:
L knee OA s/p L TKA w/ Dr Kendall 12/03/23
- s/p R TKA, 08/2023, by Dr Kendall
DVT prophylaxis - ASA, b/l venous foot pumps
Acute on chronic pain syndrome - pain meds adjusted to include the following:
- Continue Suboxone
- PO Oxycodone 15 mg q6h switched to Dilaudid 6 mg q6h per recommendation of pharmacy d/t higher affinity of Dilaudid to opioid receptors while on Suboxone
- OxyContin 10 mg increased from q12h to q8h (Will have Xtampza 9 mg at home)
- Gabapentin switched to Lyrica. Lyrica dosing equivalent to Gabapentin home dose
- Home Clonazepam increased from BID to TID
- Continue 3 Lidocaine patches/daily
- Will add low dose Toradol -> caution w/ h/o recurrent GI bleeds; will continue daily Protonix
- Did add Tylenol prn for pain, temp >100.4
- Will continue to encourage pt to get OOB and moving. Lack of mobility likely attributing to pain
- Continue to monitor and adjust pain meds as indicated
Elevated temp 100.6 post-procedure - ? why axillary temp was taken when oral was preferable
- Continue oral temp trends. Mild elevations in temp common this close from surgery
- WBC w/ mild leukocytosis - likely reactive from surgery
- Lactic acid 2.2 - trend
- Procalcitonin 0.15 -> low likelihood of bacterial infection and abx discouraged
- Pt is currently asymptomatic
Acute on chronic hyponatremia - possibly from SIADH - fluid restriction, hold SSRI, ensure adequate pain control
History of recurrent pneumonia
Probable obstructive sleep apnea, sleep study pending
- O2 stable on RA
- Continue IS
- Cefadroxil upon d/c
GERD and recurrent GI bleeds - continue Protonix
GIVENS - minimize Tylenol
- Low dose Toradol to help w/ acute pain
Chronic constipation - Miralax/Colace/Senna
Seizure disorder, last seizure 2019 - continue Keppra
Peripheral neuropathy - continue Lyrica over Gabapentin
BPH with LUTS - voiding appropriately w/ addition of daily Flomax
Elevated hemoglobin A1c, likely secondary to recent steroids - continue to monitor BS
- Diabetic, carb controlled diet
- SSI during admission. Consider low dose lantus
Nephrolithiasis
Hepatitis C, status post treatment
Migraines
Hypothyroidism
Prostate cancer, 2010, status post chemotherapy with recurrence in 2021, status post chemotherapy and radiation
Depression
Anxiety
PTSD
History of MRSA; two negative MRSA screens since diagnosis
Hearing impairment bilaterally
Obesity, BMI 33.4
Plan
.
Surgery / Date: L TKA w/ Dr Kendall 12/03/23
DVT Prophylaxis: Aspirin
Activity:
Out of bed.
PT/OT
Discharge Plan: Home w/ VN
Subjective
.
.:
Patient examined resting in bed this AM.
Acute on chronic pain - meds further adjusted w/ help of pharmacy.
? Mild post-op fever through axillary temp.
Vital Signs and Labs
.
Vital Signs and Labs:
Lab Results
12/05/23 05:28
12/05/23 05:28
Temp Pulse Resp BP Pulse Ox
100.2 F 106 20 140/77 98
12/05/23 07:20 12/05/23 07:20 12/05/23 07:20 12/05/23 07:20 12/05/23 07:20
Non-invasive Hgb result: 12.1
Physical Exam
-
HEENT: No pallor, cyanosis, or jaundice. Throat clear.
NECK: Supple. No JVD.
RESPIRATORY: Lungs clear to auscultation.
CVS: S1, S2 normal. RRR.�
ABDOMEN: Soft, non-tender. No distension.
EXTREMITIES: Expected post-op L knee edema. Strength equal, no calf pain with palpation/dorsiflexion. Calves soft.
CHROMIUM PLATER: AOx3. No focal deficits. new car sales manager grossly intact
[2023-12-05] MEDS: TORADOL 10 MG IV (10:06)
[2023-12-05 11:18] LABS: Glucose - Point of Care 233 mg/dl (70-99)
[2023-12-05 11:35] VITALS: BP 141/85; BP 143/82; PULSE 100; O2SAT 95
[2023-12-05 11:40] VITALS: BP 141/85; BP 143/82; PULSE 100; O2SAT 95
[2023-12-05] MEDS: CARAFATE 1 GRAM PO (12:13)
[2023-12-05 12:24] LABS: Lactic Acid 1.8 mmol/L (0.7-2.0)
[2023-12-05 13:00] VITALS: BMI 31.9
[2023-12-05] MEDS: DECADRON 6 MG IV ×2 (13:48→21:52)
[2023-12-05] MEDS: DURAGESIC 25 MCG/HR PATCH 1 PATCH TRANSDERM (13:50)
[2023-12-05] MEDS: VALIUM INJECTION 5 MG IV ×2 (13:51→17:24)
[2023-12-05] MEDS: LANTUS 0.100000000000000006 UNITS SC (13:52)
--- NOTE | 2023-12-05 14:30 | PTCARENOTE ---
Obtained Doppler Pulses on L Femoral, Popliteal, DP and PT per Order.
[2023-12-05 16:00] VITALS: BP 109/72
[2023-12-05 16:03] VITALS: BP 136/74; PULSE 95; O2SAT 95
[2023-12-05 17:22] LABS: Glucose - Point of Care 275 mg/dl (70-99)
[2023-12-05] MEDS: NOVOLOG FLEXPEN-MODERATE RESISTANCE 5 UNITS SC (17:25)
[2023-12-05] MEDS: NOVOLOG FLEXPEN 5 UNITS SC (17:25)
[2023-12-05 17:44] LABS: Lactic Acid 3.1 mmol/L (0.7-2.0)
[2023-12-05] MEDS: TORADOL 15 MG IV (21:03)
[2023-12-05] MEDS: KLONOPIN 0.5 MG PO (21:03)
--- NOTE | 2023-12-05 21:15 | PTCARENOTE ---
Matt VEGA Amarilis Mancini was notified of last lactic acid result of 3.1, Matt VEGA requested that ortho be notified; Dr. Miranda notified and stated that hospitalist team ordered the q6 lactic acid and were following results, and if patient
asymptomatic it would ok to continue to trend it, this RN reported patient has been asymptomatic and that I would contact GARY to continue to follow lactic acids; GARY notified and electronic order was entered for a lactic acid lab draw for 00:05;
will continue to monitor.
[2023-12-05 21:36] LABS: Glucose - Point of Care 318 mg/dl (70-99)
[2023-12-05] MEDS: NOVOLOG FLEXPEN 7 UNITS SC (21:51)
[2023-12-05 23:59] LABS: Glucose - Point of Care 237 mg/dl (70-99)
[2023-12-06] VITALS (7 sets, daily range): BP systolic 111–137; BP diastolic 73–88; PULSE 85–112; O2SAT 95–100; BMI 31.9
--- NOTE | 2023-12-06 00:15 | PTCARENOTE ---
Patient refusing care at this time including 23:00 vital signs, and 00:05 lactic acid; education provided of the importance of VS and lab draw, patient quite difficult at time of this note; House GARY Mancini notified and she replied its okay
to do lab draw in a.m.; will continue to monitor.
[2023-12-06] MEDS: DILAUDID 6 MG PO ×4 (01:55→21:59)
[2023-12-06] MEDS: DECADRON 6 MG IV (05:47)
[2023-12-06] MEDS: SYNTHROID 50 MCG PO (05:49)
[2023-12-06 05:54] LABS: Sodium 132 mmol/L (135-145)
--- NOTE | 2023-12-06 06:32 | W.PN.UPDATE ---
Update Note
Progress Note Update
per RN patient refused to have vitals taken or lab work done.
he allowed labs in AM, lactic acid 6.0. Will start patient on NSS @100cc/hr
--- NOTE | 2023-12-06 06:35 | PTCARENOTE ---
Patient allowed phlebotomy to do morning labs; CRITICAL VALUE Lactic Acid 6.0, Matt Mancini notified, electronic order entered for IVF 0.9% Sodium Chloride @100mls/hr; will administer following verification from Pharmacy; will give
detailed report to leonardohift RN.
[2023-12-06] MEDS: NSS 500 IV ×2 (06:48→12:12)
[2023-12-06 07:59] LABS: Glucose - Point of Care 301 mg/dl (70-99)
--- NOTE | 2023-12-06 08:28 | CM ---
Addendum entered by Nga Vicente 12/06/23 11:18:
Patient worked with PT and OT and is improving. Met with patient and spoke with his fiance, Yen. Patient feels he will be able to return home. Yen is in agreement and will come in this afternoon at 1330 for family instruction. Discussed transport
home. Yen has a wheel chair which they could use to get patient into his condo. Also discussed option of wheel chair van and out of pocket cost for this.
Mary Ellen at [facility] updated. She confirms that they will be able to accept patient tomorrow if SNF is needed. Provided her with authorization information.
Pamela at [facility] also updated and start of care changed tentatively to 12/07.
Original Note:
Reviewed chart and held rounds with KHURRAM Ramirez, PT, OT and nursing. Patient is not medically cleared for discharge today. Met with patient at bedside. Patient states his pain is better today. Discussed discharge plans Patient hopes that by
tomorrow he will be able to go home with VN services. If SNF continues to be needed, he selects [facility]. Told patient that we will further discuss discharge plans after he works with PT and OT this morning.
Patient has a rolling walker and a cane at home.
Will update [facility] and change start of care if patient will be able to go home.
Message was sent to Mary Ellen at [facility] ([phone]) with update that patient is not cleared for discharge.
Call received from Marian at [facility] (on behalf of [facility] Medicare). Authorization received for patient top go to [facility]. Next review date is 12/09. Update provided that patient will not be discharged today. She states
that patient has until the next review date to admit to SNF. If patient still here beyond next review date, will need to provide update. Reference number is # [id number]. application development project manager is Jen Workman and updates should be faxed to [phone].
[2023-12-06] MEDS: COLACE 100 MG PO ×2 (08:59→21:56)
[2023-12-06] MEDS: LYRICA 150 MG PO ×3 (09:00→21:56)
[2023-12-06] MEDS: ASPIRIN 325 MG PO (09:00)
[2023-12-06] MEDS: PROTONIX 40 MG PO ×2 (09:00→21:58)
[2023-12-06] MEDS: KEPPRA 1500 MG PO ×2 (09:00→21:57)
[2023-12-06] MEDS: FLOMAX 0.400000000000000022 MG PO (09:00)
[2023-12-06] MEDS: KLONOPIN 0.5 MG PO (09:00)
[2023-12-06] MEDS: SUBUTEX 8 MG SL (09:00)
[2023-12-06] MEDS: SENOKOT 17.1999999999999993 MG PO ×2 (09:00→21:57)
[2023-12-06] MEDS: NOVOLOG FLEXPEN-MODERATE RESISTANCE 7 UNITS SC (09:01)
[2023-12-06] MEDS: NOVOLOG FLEXPEN 5 UNITS SC ×2 (09:01→13:10)
[2023-12-06] MEDS: MIRALAX 17 GRAMS PO (09:02)
[2023-12-06] MEDS: LANTUS 0.200000000000000011 UNITS SC (09:02)
[2023-12-06] MEDS: LIDOCAINE 4% PATCH 3 PATCH TOPICAL (09:02)
[2023-12-06] MEDS: TORADOL 15 MG IV ×2 (09:03→22:04)
[2023-12-06 09:47] LABS: ALT (SGPT) 20 U/L (0-50); AST (SGOT) 29 U/L (17-59); Albumin 4.5 g/dl (3.5-5.0); Alkaline Phosphatase 57 U/L (38-126); Blood Urea Nitrogen 24 mg/dl (9-20); Calcium 9.7 mg/dl (8.4-10.2); Carbon Dioxide 22 mmol/L (22-30); Chloride 95 mmol/L (98-107); Estimated Creatinine Clearance 95 ml/min; Glucose 261 mg/dl (70-99); Potassium 3.7 mmol/L (3.5-5.1); Total Bilirubin 1.2 mg/dl (0.2-1.3); Total Protein 7.1 g/dl (6.3-8.2); eGFR > 60.00
[2023-12-06] MEDS: MAXALT MLT (ORALLY DISINTEGRATING) 5 MG PO (10:48)
[2023-12-06 11:25] LABS: Glucose - Point of Care 222 mg/dl (70-99)
[2023-12-06] MEDS: VALIUM INJECTION 5 MG IV (12:13)
--- NOTE | 2023-12-06 12:15 | W.PN.ORTHO ---
Today's Communication / Plan
-
Monitor pain, lactic acid, BS.
D/c when clinically stable.
Assessment
.
Distal Motor Intact: Yes
Dressing:
Scant old incisional bleeding. Dressing otherwise C/D/I
Assessment:
L knee OA s/p L TKA w/ Dr Kendall 12/03/23
- s/p R TKA, 08/2023, by Dr Kendall
DVT prophylaxis - ASA, b/l venous foot pumps
Acute on chronic pain syndrome - pain meds adjusted to include the following:
- Continue Suboxone
- PO Oxycodone 15 mg q6h switched to Dilaudid 6 mg q6h per recommendation of pharmacy d/t higher affinity of Dilaudid to opioid receptors while on Suboxone
- OxyContin switched to Fentanyl 25 mcg patch
- Gabapentin switched to Lyrica. Lyrica dosing equivalent to Gabapentin home dose
- Valium BID ordered w/ reduction in Clonazepam (takes with Keppra for seizure prevention).
- Continue 3 Lidocaine patches/daily
- Will add low dose Toradol -> caution w/ h/o recurrent GI bleeds; will continue daily Protonix but at BID dosing
- Decadron taper added - will attempt to wean off by 12/06
- Will continue to encourage pt to get OOB and moving. Lack of mobility initially felt to be contributing to pain
- Continue to monitor and adjust pain meds as indicated
Elevated temp 100.6 post-procedure - ? why axillary temp was taken when oral was preferable
- Continue oral temp trends. Mild elevations in temp common this close from surgery. No elevated temps since
- WBC w/ mild leukocytosis - likely reactive from surgery and now steroids - trend
- Lactic acid 2.2 -> 1.8 -> 6.0; felt to be non-infectious related (dehydration yesterday, recent BS elevations) - will order IVF and trend. Pt currently asymptomatic
- Procalcitonin 0.15 -> low likelihood of bacterial infection and abx discouraged
- CRX negative, blood culture negative after 24 hours, awaiting UA w/ culture
Acute on chronic hyponatremia - possibly from SIADH - mild fluid restriction (50 oz), hold SSRI until tomorrow, ensure adequate pain control
History of recurrent pneumonia
Probable obstructive sleep apnea, sleep study pending
- O2 stable on RA
- Continue IS
- Cefadroxil upon d/c
GERD and recurrent GI bleeds - continue Protonix BID
GIVENS - no Tylenol
- Low dose Toradol to help w/ acute pain
Chronic constipation - Miralax/Colace/Senna
Seizure disorder, last seizure 2019 - continue Keppra
Peripheral neuropathy - continue Lyrica over Gabapentin
BPH with LUTS - voiding appropriately w/ addition of daily Flomax
Elevated hemoglobin A1c, likely secondary to recent steroids - continue to monitor BS
- Of note, BS elevated due to recent addition of steroids - steroids to be weaned and Lantus/Novolog adjusted accordingly
- Continue a diabetic, carb controlled diet
- Considering pt may need insulin upon d/c, will consult diabetic BARREL WASHER MACHINE
Nephrolithiasis
Hepatitis C, status post treatment
Migraines
Hypothyroidism
Prostate cancer, 2010, status post chemotherapy with recurrence in 2021, status post chemotherapy and radiation
Depression
Anxiety
PTSD
History of MRSA; two negative MRSA screens since diagnosis
Hearing impairment bilaterally
Obesity, BMI 33.4
Plan
.
Surgery / Date: L TKA w/ Dr Kendall 12/03/23
DVT Prophylaxis: Aspirin
Activity:
Out of bed.
PT/OT
Discharge Plan: Home w/ VN (vs SNF)
Subjective
.
.:
Patient appearing to rest comfortably in his bed.
Pain overall 'improved' with pain meds adjusted yesterday.
Lactic acid elevated - trending and IVF provided.
Vital Signs and Labs
.
Vital Signs and Labs:
Lab Results
12/06/23 07:47
Temp Pulse Resp BP Pulse Ox
98.2 F 85 18 128/88 97
12/06/23 07:18 12/06/23 07:18 12/06/23 07:18 12/06/23 07:18 12/06/23 07:18
Non-invasive Hgb result: 10.9
Physical Exam
-
HEENT: No pallor, cyanosis, or jaundice. Throat clear.
NECK: Supple. No JVD.
RESPIRATORY: Lungs clear to auscultation.
CVS: S1, S2 normal. RRR.
ABDOMEN: Soft, non-tender. No distension. Obese.
EXTREMITIES: Expected post-surgical L knee edema. Strength equal, no calf pain with palpation/dorsiflexion. Calves soft.
FLARE BREAKER: AOx3. No focal deficits. permit agent grossly intact
[2023-12-06 12:36] LABS: Hematocrit 29.4 % (39.0-52.0); Hemoglobin 10.6 g/dL (13.0-18.0); Mean Corp Hgb Conc. 36.1 g/dL (33.0-37.0); Mean Corpuscular Hgb 29.9 pg (27.0-31.0); Mean Corpuscular Volume 83.1 fL (80.0-94.0); Mean Platelet Volume 11.4 fL (7.4-10.4); Platelet Count 164 10^3/uL (130-400); Red Blood Cell Count 3.54 10^6/uL (4.70-6.10); Red Cell Dist. Width 12.3 % (11.5-14.5); White Blood Cell Count 13.8 10^3/uL (4.8-10.8)
[2023-12-06 12:50] LABS: Lactic Acid 1.7 mmol/L (0.7-2.0)
[2023-12-06] MEDS: NOVOLOG FLEXPEN-MODERATE RESISTANCE 3 UNITS SC ×2 (13:09→18:02)
--- NOTE | 2023-12-06 14:52 | PN.DE.MGMTRT ---
Insulin Management
- -
12/06/2023: Diabetes Management Consult
63 year old male with PMH: Nephrolithiasis. Hepatitis C, s/p treatment, Migraines, Hypothyroidism, Prostate cancer, 2011, s/p chemo and radiation, Depression, Anxiety, PTSD, History of MRSA; two negative MRSA screens since diagnosis, Hearing
impairment bilaterally, Obesity, BMI 33.4 and T2DM.
Pt was admitted for elective Left TKA and is now POD # 3. He is noted for new onset Diabetes Dx, HgA1c 7% on 11/16/23.
Pt was given IV Decadron that was give for txt of low back/thigh/knee pain yesterday causing persistent Hyperglycemia
He is currently oh steroids taper and has been started on basal/bolus insulin: 20 units of Lantus with 5 units of NovoLog AC and SSI.
Pt seen with at bedside. He is Awake, A/O x3, sitting up in chair, offers no complaints and is able to participate in discussion regarding diabetes.
He is noted for a lactate level of 6, improved to 1.7 after IVF hydration. Cr 1.0 Today
Glucose has remained elevated, FBG 261 this AM, premeal 280-301, requiring 1-7 units of additional corrective insulin
Will increase NovoLog AC to 8 units.
Will Cont increased dose of Lantus 20, received 1st dose this morning.
Plan to transition to oral regimen-Glipizide 5mg BID in AM.
Pt states he is not diabetic and insists on not being treated with insulin. States he has been off and on oral steroids for the last 4 months for back pain and that this has caused his sugars to go up. States his PCP mentioned that his sugars would
normalize once off steroids.
Explained to pt that he received a large dose of steroids yesterday and remains on IV steroids, and that his sugars will likely remain elevated for a few more days until he has been weaned off steroids completely. Further explained to pt that he may
need long acting insulin short term for optimal glucose control. Discussed oral medications and pt's requested no Metformin given acidosis.
Diabetes History
- -
Type of Diabetes: 2
Pre-Admission Diabetes Regimen
12/06/23 12/06/23
05:18 07:47
Creatinine 1.0 Cancelled
Lab Results
Hemoglobin A1c 7.0 % (4.0-5.6) H 11/16/23 12:47
Insulin Pump Settings
IP Diabetes Regimen
12/05/23 12/05/23 12/05/23
17:18 21:35 23:58
Glucose
POC Glucose 275 H 318 H 237 H
12/06/23 12/06/23 12/06/23
05:18 07:47 07:58
Glucose 261 H Cancelled
POC Glucose 301 H
12/06/23
11:22
Glucose
POC Glucose 222 H
Meal type: Breakfast
Meal type: Dinner
Amount consumed: 100%
Patient Education
[2023-12-06 14:53] LABS: Glucose - Point of Care 280 mg/dl (70-99)
--- NOTE | 2023-12-06 15:20 | W.PN.UPDATE ---
Update Note
Progress Note Update
Pt noted to have two episodes of brief unresponsiveness while working w/ therapy today.
When patient came to, he did report a brief visual change of spots in both eyes.
Orthostatic VS stable. He is not hypoglycemic. AM labs fairly stable.
Per pt, symptoms are fairly consistent with his history of previous seizures. Last known seizure occurred in 2019.
Pt does take Keppra and Clonazepam for his seizures. He has not skipped any dosages marguerite-operatively.
Clonazepam was recently decreased from 1 mg PO BID to 0.5 mg PO BID yesterday to accommodate the addition of Valium for ongoing back/knee pain.
Did discuss seizure like activity w/ Dr. Perdue of Neurology who suggested I return to the patient's home dosing of Clonazepam and decrease his Valium dose.
The patient is currently awake and mentally stable.
Dr. Perdue will be in to reassess the patient with these medication adjustments tomorrow.
[2023-12-06] MEDS: VALIUM INJECTION 2 MG IV (15:46)
[2023-12-06 16:20] LABS: Glucose - Point of Care 248 mg/dl (70-99)
[2023-12-06] MEDS: NOVOLOG FLEXPEN 8 UNITS SC (18:03)
--- NOTE | 2023-12-06 19:27 | VATNOTE ---
called to restart IV; attempted x1; pt. instructed this VAT RN to remove IV as attempting to restart; stated had one time only to restart. PCN informed.
[2023-12-06 21:32] LABS: Glucose - Point of Care 232 mg/dl (70-99)
[2023-12-06] MEDS: KLONOPIN 1 MG PO (21:58)
[2023-12-06] MEDS: DECADRON 4 MG IV (22:03)
[2023-12-07] MEDS: DILAUDID 6 MG PO ×3 (03:34→13:48)
[2023-12-07] MEDS: SYNTHROID 50 MCG PO (06:03)
[2023-12-07 06:41] LABS: Urine Albumin Negative (Neg - Trace); Urine Bilirubin Negative (Negative); Urine Character Clear (Clear); Urine Color Yellow; Urine Glucose 2+ (Negative); Urine Ketone Negative (Negative); Urine Leukocyte Negative (Negative); Urine Nitrite Negative (Negative); Urine Occult Blood Negative (Negative); Urine Specific Gravity 1.015 (<1.030); Urine Urobilinogen Negative (Neg - 1+)
--- NOTE | 2023-12-07 07:30 | PN.DE.MGMTRT ---
Insulin Management
- -
12/07/2023: Diabetes Management F/U:
63 year old male with PMH: Nephrolithiasis. Hepatitis C, s/p treatment, Migraines, Hypothyroidism, Prostate cancer, 2011, s/p chemo and radiation, Depression, Anxiety, PTSD, History of MRSA; two negative MRSA screens since diagnosis, Hearing
impairment bilaterally, Obesity, BMI 33.4 and T2DM.
Pt was admitted for elective Left TKA and is now POD # 3. He is noted for new onset Diabetes Dx, HgA1c 7% on 11/16/23.
Pt was given IV Decadron for txt of low back/thigh/knee pain yesterday causing persistent Hyperglycemia
He is currently on steroids taper and has been started on basal/bolus insulin: 20 units of Lantus with 5 units of NovoLog AC and SSI.
Pt seen and examined this morning. He is Awake, A/O x3, sitting up in chair, offers no complaints and is able to participate in discussion regarding diabetes.
He has been weaned off steroids. Glucose has remained elevated while on steroids, FBG 275.
Pt for discharge home today, A1C was 7% on admission, Hyperglycemia is steroid induced, expect glucose levels to down trend in the next 2-3 days now that he is off steroids. Will start Glipizide 5 mg BID, 1st dose to be adm before D/C.
Pt was instructed to F/U wit his PCP to determine if okay to add Metformin.
Pt was provided with monitor and instructed to monitor blood sugar and keep log, he will call the diabetes office on Sunday to report trend of his blood sugars over the weekend.
Diabetes History
- -
Type of Diabetes: 2
Pre-Admission Diabetes Regimen
12/06/23 12/06/23
05:18 07:47
Creatinine 1.0 Cancelled
Lab Results
Hemoglobin A1c 7.0 % (4.0-5.6) H 11/16/23 12:47
Insulin Pump Settings
IP Diabetes Regimen
12/06/23 12/06/23 12/06/23
05:18 07:47 07:58
Glucose 261 H Cancelled
POC Glucose 301 H
12/06/23 12/06/23 12/06/23
11:22 14:51 16:16
Glucose
POC Glucose 222 H 280 H 248 H
12/06/23
21:31
Glucose
POC Glucose 232 H
Meal type: Dinner
Meal type: Lunch
Meal type: Breakfast
Amount consumed: 100%
Amount consumed: 100%
Patient Education
[2023-12-07 08:23] LABS: Glucose - Point of Care 275 mg/dl (70-99)
[2023-12-07 08:25] VITALS: BP 114/76
[2023-12-07] MEDS: LANTUS 0.220000000000000001 UNITS SC (08:42)
[2023-12-07] MEDS: COLACE 100 MG PO (08:43)
[2023-12-07] MEDS: PROZAC 40 MG PO (08:43)
[2023-12-07] MEDS: KLONOPIN 1 MG PO (08:43)
[2023-12-07] MEDS: PROZAC 20 MG PO (08:43)
[2023-12-07] MEDS: SUBUTEX 8 MG SL (08:43)
[2023-12-07] MEDS: ASPIRIN 325 MG PO (08:43)
[2023-12-07] MEDS: LYRICA 150 MG PO (08:44)
[2023-12-07] MEDS: SENOKOT 17.1999999999999993 MG PO (08:44)
[2023-12-07] MEDS: DECADRON 4 MG IV (08:44)
[2023-12-07] MEDS: FLOMAX 0.400000000000000022 MG PO (08:44)
--- NOTE | 2023-12-07 08:44 | CM ---
Addendum entered by Nga Vicente 12/07/23 14:53:
Mary Ellen at [facility] was updated that patient will be going home.
Call placed to [facility]. Update provided that patient went home and will not be going to SNF.
Addendum entered by Nga Vicente 12/07/23 11:36:
Patient did well in therapy. Met with patient and spoke with his fiance. Both are comfortable with discharge to home today. Patient will go home via wheel chair van. They are aware of cost and Yen indicates that she will pay for this.
Updated referral was sent to [facility] with request for PT, OT and SN services; start of care 12/07.
Original Note:
Reviewed chart and held rounds with KHURRAM Ramirez, PT, OT and nursing. Met with patient at bedside. Discussed discharge plans Patient continues to state that he wants to go home at discharge. His fiance, Yen, will stay with him. Reviewed [facility]
services including start of care (tentatively 12/07), services ordered (PT, OT, SN) and frequency/duration of services. Patient expressed understanding and continues to select [facility]. Told patient that we will further discuss discharge plans after he
works with PT and OT this morning.
Patient has a rolling walker and a cane at home.
agents' records clerk to fax discharge instructions to [facility] when complete.
If patient needs SNF, [facility] is facility of choice. Bed is available today if needed. Will update facility once discharge plan is confirmed.
Patient has been approved for SNF rehab at [facility]. Next review date is 12/09. Reference number is # [id number]. executive communications manager is Jen Workman and updates should be faxed to [phone]. Per [facility], patient has until the next
review date to admit to SNF under current authorization. If patient still here beyond next review date, will need to provide update.
[2023-12-07] MEDS: PROTONIX 40 MG PO (08:45)
[2023-12-07] MEDS: LIDOCAINE 4% PATCH 3 PATCH TOPICAL (08:45)
[2023-12-07] MEDS: KEPPRA 1500 MG PO (08:45)
[2023-12-07] MEDS: MIRALAX PO ×2 (08:45→08:51)
[2023-12-07] MEDS: NOVOLOG FLEXPEN-MODERATE RESISTANCE 5 UNITS SC (08:46)
[2023-12-07] MEDS: FLUSH (NSS) 2 FLUSH IV (08:46)
[2023-12-07] MEDS: NOVOLOG FLEXPEN 8 UNITS SC ×2 (08:47→13:10)
[2023-12-07 11:00] VITALS: BP 119/63; BP 125/69; BP 126/67; PULSE 71; PULSE 83; PULSE 96
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
[2023-12-07] MEDS: VALIUM INJECTION 2 MG IV (11:38)
[2023-12-07] MEDS: FLUSH (NSS) 1 FLUSH IV (11:38)
--- NOTE | 2023-12-07 11:56 | W.PN.ORTHO ---
Today's Communication / Plan
-
Aim for d/c this afternoon.
Discuss further medication recs w/ diabetic VELVET STEAMER before potential d/c.
Assessment
.
Distal Motor Intact: Yes
Dressing:
Scant areas of old incisional bleeding. Dressing otherwise C/D/I.
Assessment:
L knee OA s/p L TKA w/ Dr Kendall 12/03/23
- s/p R TKA, 08/2023, by Dr Kendall
DVT prophylaxis - ASA, b/l venous foot pumps
Acute on chronic pain syndrome - pain meds adjusted to include the following:
- Continue Suboxone
- PO Oxycodone 15 mg q6h switched to Dilaudid 6 mg q6h per recommendation of pharmacy d/t higher affinity of Dilaudid to opioid receptors while on Suboxone
- OxyContin switched to Fentanyl 25 mcg patch
- Gabapentin switched to Lyrica. Lyrica dosing equivalent to Gabapentin home dose
- Valium BID ordered in addition to Clonazepam (takes with Keppra for seizure prevention).
- Continue 3 Lidocaine patches/daily
- Will add low dose Toradol -> caution w/ h/o recurrent GI bleeds; will continue daily Protonix but at BID dosing.
- Decadron taper added and weaned by 12/06 AM
- Pain overall well controlled w/ current pain med regimen. Will Rx similar plan upon d/c
- Pt aware to contact Dr. Brizuela (pain mgmt) should he need further pain med adjustments
Elevated temp 100.6 post-procedure - ? why axillary temp was taken when oral was preferable
- Oral temp trends stable. Mild elevations in temp are common this close from surgery
- WBC w/ mild leukocytosis - likely reactive from surgery and steroids
- Lactic acid trending down from 6.0 to 1.7 12/05 w/ IVF - likely elevated initially in setting of dehydration, elevated BS, and surgical stress
- Procalcitonin 0.15 -> low likelihood of bacterial infection and abx discouraged
- CRX negative, blood culture negative after 48 hours, UA WNL
Acute on chronic hyponatremia - improved back to baseline 12/05 w/ mild fluid restriction (50 oz), holding of Prozac, adequate pain control
Seizure-like activity 12/05 w/ therapy - known seizure d/o - improving w/ resumption of Clonazepam 1 mg PO BID and continuation of Keppra
- Of note, orthostatic VS WNL
History of recurrent pneumonia
Probable obstructive sleep apnea, sleep study pending
- O2 stable on RA
- Continue IS
- Cefadroxil upon d/c
GERD and recurrent GI bleeds - continue Protonix BID while on low-dose NSAID x1 week
GIVENS - no Tylenol
- Low dose Toradol to help w/ acute pain during admission
Chronic constipation - Miralax/Colace/Senna
Peripheral neuropathy - continue Lyrica over Gabapentin
BPH with LUTS - voiding appropriately w/ addition of daily Flomax
New onset diabetes, A1c 7.0 - continue to monitor BS
- Of note, BS elevated due to recent addition of steroids - steroids were weaned and Lantus/Novolog was adjusted accordingly
- Continue a diabetic, carb controlled diet
- Will await further recs from diabetic VELVET STEAMER
Nephrolithiasis
Hepatitis C, status post treatment
Migraines
Hypothyroidism
Prostate cancer, 2010, status post chemotherapy with recurrence in 2021, status post chemotherapy and radiation
Depression
Anxiety
PTSD
History of MRSA; two negative MRSA screens since diagnosis
Hearing impairment bilaterally
Obesity, BMI 33.4
Plan
.
Surgery / Date: L TKA w/ Dr Kendall 12/03/23
DVT Prophylaxis: Aspirin
Activity:
Out of bed.
PT/OT
Discharge Plan: Home w/ VN
Subjective
.
.:
Patient resting comfortably in his chair today.
Offers no new complaints. L knee pain is tolerable w/ current meds.
Vital Signs and Labs
.
Vital Signs and Labs:
Lab Results
12/06/23 12:16
12/06/23 07:47
Temp Pulse Resp BP Pulse Ox
97.9 F 73 18 125/69 97
12/07/23 11:00 12/07/23 11:00 12/07/23 11:00 12/07/23 11:00 12/07/23 11:00
Non-invasive Hgb result: 10.9
Physical Exam
-
HEENT: No pallor, cyanosis, or jaundice. Throat clear.
NECK: Supple. No JVD.
RESPIRATORY: Lungs clear to auscultation.
CVS: S1, S2 normal. RRR.�
ABDOMEN: Soft, non-tender. No distension. Obese.
EXTREMITIES: Expected post-op L knee surgical edema. Strength equal, no calf pain with palpation/dorsiflexion. Calves soft.
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 No focal deficits. protection officer grossly intact
[2023-12-07 12:03] LABS: Glucose - Point of Care 229 mg/dl (70-99)
--- NOTE | 2023-12-07 12:42 | W.DS.TRANS ---
DC Summary - Medical Services Coordinator
-
Discharge Instructions:
Discharge Diagnosis/Procedures L knee OA s/p L TKA w/ Dr Kendall 12/03/23
Diet Diabetic, Carb Controlled
Activity As tolerated,With Walker
Driving Restrictions Not until seen by your Dr
Bathing Restrictions OK to Shower
Other Services VN,PT
Wound Care Dressing to be removed 1 week post-surgery.
Chrissy to be removed at 2 week follow-up
appointment with surgeon's office.
Instructions:
Stand-Alone Forms: Total Hip/Knee Replacement D/C
Changes to Home Medications: Yes
Discharge Medications:
DC Medications w/original date entered in [employer]
clonazepam 1 mg tablet 1 mg PO BID Mental Health/Anxiety 07/23/23
fluoxetine 20 mg capsule (Prozac) 20 mg PO DAILY Mental Health/Anxiety 07/23/23
fluoxetine 40 mg capsule (Prozac) 40 mg PO DAILY Mental Health/Anxiety 07/23/23
levetiracetam 1,000 mg tablet (Keppra) 1,500 mg PO BID Seizures 07/23/23
levothyroxine 50 mcg tablet 50 mcg PO DAILY@0700 Thyroid 07/23/23
rizatriptan 5 mg tablet 5 mg PO DAILYPRN PRN Migraines 07/23/23
sucralfate 1 gram tablet (Carafate) 1 g PO BIDPRN PRN GI issues 07/23/23
buprenorphine 8 mg-naloxone 2 mg sublingual tablet 1 tab sublingual DAILY Mental Health/Anxiety 09/12/23
docusate sodium 100 mg capsule (Colace) 100 mg PO BID Constipation 11/16/23
multivitamin 1 tab PO DAILY Supplement 11/16/23
mupirocin 2 % topical ointment 1 applic intranasal BID #1 tube 11/16/23
polyethylene glycol 3350 17 gram oral powder packet (Miralax) 17 g PO DAILY Constipation 11/16/23
sennosides 8.6 mg tablet (senna) 17.2 mg PO BID Constipation 11/16/23
aspirin 325 mg tablet 325 mg PO DAILY #30 tabs 12/07/23
diazepam 2 mg tablet (Valium) 2 mg PO BID@1100,1600 muscle spasms #10 tabs 12/07/23
fentanyl 25 mcg/hr transdermal patch 1 patch transdermal Q72H chronic pain #5 ea 12/07/23
glipizide 5 mg tablet 5 mg PO BID #60 tabs 12/07/23
hydromorphone 4 mg tablet (Dilaudid) 4 mg PO Q6H PRN severe breakthrough pain #30 tabs 12/07/23
lidocaine 4 % topical patch 3 patch topical DAILY #30 ea 12/07/23
meloxicam 7.5 mg tablet 7.5 mg PO DAILY #7 tabs 12/07/23
ondansetron 4 mg disintegrating tablet 4 mg PO Q6H PRN nausea and vomiting #30 tabs 12/07/23
pantoprazole 40 mg tablet,delayed release 40 mg PO BID #1 tab 12/07/23
pregabalin 75 mg capsule 150 mg (2 x 75 mg) PO TID neuropathic pain #30 caps 12/07/23
Home Medication Changes
aspirin 325 mg tablet 325 mg PO DAILY #30 tabs 12/07/23
diazepam 2 mg tablet (Valium) 2 mg PO BID@1100,1600 muscle spasms #10 tabs 12/07/23
fentanyl 25 mcg/hr transdermal patch 1 patch transdermal Q72H chronic pain #5 ea 12/07/23
glipizide 5 mg tablet 5 mg PO BID #60 tabs 12/07/23
hydromorphone 4 mg tablet (Dilaudid) 4 mg PO Q6H PRN severe breakthrough pain #30 tabs 12/07/23
lidocaine 4 % topical patch 3 patch topical DAILY #30 ea 12/07/23
meloxicam 7.5 mg tablet 7.5 mg PO DAILY #7 tabs 12/07/23
ondansetron 4 mg disintegrating tablet 4 mg PO Q6H PRN nausea and vomiting #30 tabs 12/07/23
pantoprazole 40 mg tablet,delayed release 40 mg PO BID #1 tab 12/07/23
pregabalin 75 mg capsule 150 mg (2 x 75 mg) PO TID neuropathic pain #30 caps 12/07/23
Pending Results: Yes (blood culture (no growth within 48 hours))
[2023-12-07] MEDS: GLUCOTROL 5 MG PO (13:09)
[2023-12-07] MEDS: NOVOLOG FLEXPEN-MODERATE RESISTANCE 3 UNITS SC (13:09)
--- NOTE | 2023-12-07 15:17 | PN.DE ---
Diabetes Education
- -
Met with Mr. Hirsch for glucose monitor instructions. Current A1C 7.0%.
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
Provided with Contour Next EZ glucometer, instructions with good return demonstration, result 229 mg/dl before lunch.
Discussed testing pattern and expected results and information marked in the take home booklet. Discussed and reviewed importance of reducing CHO intake, being active and checking BS to assess food/medication effect on his BS. Encourage physical
activity and benefit of losing weight.
Discussed OP DSME classes, requested if he can attend with his SO, was notified that program encourages spouses and SO to attend.
Will need RX for test strips and lancets for the Contour Next EZ, testing 2x/day at discharge.
Discussed plan of care including medications for management at home with Pt.
Updates given to Pt's nurse.
== END 2023-12-07 14:16 | disposition home health service (06) | DRG 470 ==
LOC: 2 SOUTH 06:14
PROVIDERS: Nurse Practitioner Gerontology; Physician Assistant; ADMITTING PHYSICIAN Specialist; CONSULT PHYSICIAN Student in an Organized Health Care Education/Training Program; FAMILY PHYSICIAN Family Medicine Sports Medicine
PROC: 0SRD0J9 Replacement of Left Knee Joint with Synthetic Substitute, Cemented, Open Approach (ICD-10-PCS; 2023-12-03)
DX: M17.12 Unilateral primary osteoarthritis, left knee (principal); E66.9 Obesity, unspecified; Z68.33 Body mass index [BMI] 33.0-33.9, adult; G40.909 Epilepsy, unspecified, not intractable, without status epilepticus; K21.9 Gastro-esophageal reflux disease without esophagitis; K75.81 Nonalcoholic steatohepatitis (NASH); E11.40 Type 2 diabetes mellitus with diabetic neuropathy, unspecified; E11.65 Type 2 diabetes mellitus with hyperglycemia; G89.4 Chronic pain syndrome; N40.1 Benign prostatic hyperplasia with lower urinary tract symptoms; K59.09 Other constipation
CPT/HCPCS: 36415; 71045; 73560; 80048; 80053; 81003; 82962; 83036; 83605; 83930; 84145; 85027; 87040; 87070; 97110; 97116; 97163; 97167; 97530; 97535; C1713; C1776

== ENCOUNTER 2024-02-29 08:54 | Emergency (ER) | payer MEDICARE, SELFPAY ==
[2024-02-29 08:56] VITALS: BP 113/79
[2024-02-29] MEDS: OMNIPAQUE 50 ML PO (10:02)
--- NOTE | 2024-02-29 10:19 | ED.GENMED ---
History of Present Illness
General
Chief Complaint: Abdominal Pain
Source: patient
Time Seen by Provider: 02/29/24 09:30
History of Present Illness
History of Present Illness:
63yoM with a history of seizures, GIVENS, obesity, and hypothyroidism presenting with his for evaluation of abdominal pain. Patient has been having ongoing issues with constipation. He is on multiple laxatives without any improvement including
lactulose, MiraLAX, and bisacodyl. Patient states he is only able to pass very small loose stools. He has a known history of a ventral hernia and has been having worsening pain in the hernia area over the past few days. Patient was seen by his
PCP 2 days ago for his symptoms. PCP was reportedly concern for an incarcerated hernia and he was advised to report to the ED for evaluation. Patient vomited 2 days ago but has not had any vomiting since. He was able to have a small BM this
morning. He is otherwise asymptomatic and denies any fevers, chills, chest pain, shortness of breath. No previous abdominal surgeries. He is currently taking oxycodone after a knee surgery several months ago.
Phy Exam
Physical Exam
Physical Exam:
Abdomen soft, obese. There is fullness in the epigastric region, diastasis recti vs ventral hernia, with tenderness. No guarding or rebound tenderness.
General Physical Exam
General Presentation: well appearing and no apparent distress
General age: appears stated age
General Skin: warm and dry
General Habitus: normal
General Mental: alert
Cardiovascular Exam
Cardiovascular Exam: regular rate/rhythm and no murmur
Pulmonary Exam
Pulmonary Exam: lungs clear, no respiratory distress, no crackles and no wheezing
Gastrointestinal Exam
Gastrointestinal Exam: soft
Palpation: left upper quadrant: Moderate tenderness and right upper quadrant: Moderate tenderness
Skin Exam
Skin Exam: normal color and warm/dry
Psychiatric Exam
Psychiatric Exam: normal mood/affect
Course
Orders/Labs/Results
Orders:
Orders
02/29/24
Electrocardiogram (*1) Stat
Reason for Study: Chest Pain
02/29/24 09:48
CT Abd/pel W Iv And Oral Contr Urgent
Comment:
Reason For Exam: Epigastric pain, constipation, hx of ventral herni
Iohexol [Omnipaque] See Protocol PO NOW STA
02/29/24 10:12
Complete Blood Count/With Diff Urgent
Comprehensive Metabolic Panel Urgent
Lipase Urgent
02/29/24 15:00
Methylnaltrexone Elida [Relistor] 12 mg SC ONCE ONE
Abnormal Lab Results
02/29/24
10:12
WBC 2.8 L 10^3/uL
(4.8-10.8)
RBC 4.56 L 10^6/uL
(4.70-6.10)
Hct 38.3 L %
(39.0-52.0)
Plt Count 113 L 10^3/uL
(130-400)
MPV 11.3 H fL
(7.4-10.4)
Absolute Lymphs (auto) 0.9 L 10^3/uL
(1.2-3.4)
Monocytes % 11.9 H %
(1.7-9.3)
Carbon Dioxide 31 H mmol/L
(22-30)
BUN 21 H mg/dl
(9-20)
Glucose 153 H mg/dl
(70-99)
Alkaline Phosphatase 138 H U/L
(38-126)
02/29/24 10:12
02/29/24 10:12
Vital Signs
Initial and Last Documented VS:
Initial Vital Signs
Temp Pulse BP Pulse Ox
98.2 F 86 113/79 98
02/29/24 08:56 02/29/24 08:56 02/29/24 08:56 02/29/24 08:56
Last Documented Vital Signs
Temp Pulse BP Pulse Ox
98.2 F 86 113/79 98
02/29/24 08:56 02/29/24 08:56 02/29/24 08:56 02/29/24 08:56
MDM/Problems Addressed
Differential Diagnosis Includes:
63yoM here with upper abd pain and constipation. Hx of ventral hernia. Sent in by PCP for concern for a ventral hernia. Patient is afebrile and hemodynamically stable. He is well-appearing in no acute distress. No signs of peritonitis on
abdominal exam. Differential diagnosis includes but is not limited to: Hernia, bowel obstruction, constipation
initial ED plan: Check abdominal labs and CT abdomen.
*Critical Care Note
Total Time (30-74mins, 75-104mins- exclusive of procedures): Not Applicable
Update Note
Update Note:
Labs reveal a mild leukopenia and thrombocytopenia, possibly secondary to known GIVENS. Remainder of labs unremarkable. CT abdomen is negative for obstruction. There is mild peripancreatic inflammatory stranding suggesting possible pancreatitis
although lipase level is normal. There is also a large volume of stool consistent with constipation on imaging. No indication for admission at this time. Advised clear liquid diet although low clinical suspicion for pancreatitis. Will give dose
of Relistor in ED for constipation and discharged with GoLytely. Advised close PCP and GI follow-up. Strict ED return precautions discussed. Patient expressed understanding and is agreeable to plan. Patient discharged in stable condition.
ED Attending Note
-
Portions of this chart may have been created with voice recognition software.� Occasional wrong word or��sound alike� substitutions may have occurred due to the inherent limitations of voice recognition software.
Discharge Plan
Departure
Patient Disposition: Home (Routine Discharge)
Date of Disposition: 02/29/24
Time of Disposition: 14:35
Patient with high blood pressure during this ER visit?: No
Discharge Problem:
Epigastric pain, Constipation
Instructions: Constipation, Adult (DC)
Prescriptions:
New
peg 3350-electrolytes [GaviLyte-G] 236-22.74-6.74 -5.86 gram recon soln
240 ml PO Q10M Qty: 4000 0RF
No Action
fluoxetine [Prozac] 40 mg Capsule
40 mg PO DAILY
Rx Instructions:
total 60 mg daily
sucralfate [Carafate] 1 gram Tablet
1 g PO BIDPRN PRN (Reason: GI issues)
clonazepam 1 mg Tablet
1 mg PO BID
Patient Comments:
takes with Keppra
levothyroxine 50 mcg Tablet
50 mcg PO DAILY@0700
fluoxetine [Prozac] 20 mg Capsule
20 mg PO DAILY
Rx Instructions:
total 60mg daily
rizatriptan 5 mg Tablet
5 mg PO DAILYPRN MDD 20 mg PRN (Reason: Migraines)
Patient Comments:
Q2 hrs- max 4 tabs
levetiracetam [Keppra] 1,000 mg Tablet
1,500 mg PO BID
buprenorphine-naloxone 8-2 mg Tablet, Sublingual
1 tab SUBLINGUAL DAILY
Patient Comments:
'took 4 mg this am'
mupirocin 2 % ointment
1 applic intranasal BID Qty: 1 0RF
Rx Instructions:
Has from prior R TKA 08/2023.
multivitamin Tablet
1 tab PO DAILY
docusate sodium [Colace] 100 mg Capsule
100 mg PO BID
polyethylene glycol 3350 [Miralax] 17 gram Powder In Packet
17 g PO DAILY
aspirin 325 mg Tablet
325 mg PO DAILY Qty: 30 0RF
Rx Instructions:
Take daily x4 weeks for blood clot prevention.
fentanyl 25 mcg/hr Patch 72 Hour
1 patch transdermal Q72H Qty: 5 0RF
Rx Instructions:
Dx chronic pain syndrome
lidocaine 4 % Adhesive Patch,Medicated
3 patch topical DAILY Qty: 30 0RF
Rx Instructions:
Over the counter. 12 hours on, 12 hours off.
Apply to sides of left knee/thigh.
pregabalin 75 mg Capsule
150 mg PO TID Qty: 30 0RF
Rx Instructions:
When finished, resume home Gabapentin.
pantoprazole 40 mg Tablet,Delayed Release (Dr/Ec)
40 mg PO BID Qty: 1 0RF
Rx Instructions:
Home medication.
Take twice a day while on low dose Meloxicam.
ondansetron 4 mg tablet,disintegrating
4 mg PO Q6H PRN (Reason: nausea and vomiting) Qty: 30 0RF
hydromorphone [Dilaudid] 4 mg tablet
4 mg PO Q6H PRN (Reason: severe breakthrough pain) Qty: 30 0RF
Rx Instructions:
1 tab for severe breakthrough pain.
Dx total joint.
diazepam [Valium] 2 mg tablet
2 mg PO BID@1100,1600 Qty: 10 0RF
Rx Instructions:
Space out 3 hours apart from Clonazepam.
meloxicam 7.5 mg tablet
7.5 mg PO DAILY Qty: 7 0RF
Rx Instructions:
Take with food.
DO NOT take within 2 hours of Aspirin.
glipizide 5 mg tablet
5 mg PO BID Qty: 60 0RF
fentanyl 12 mcg/hr patch 72 hour
1 patch transdermal Q72H Qty: 5 0RF
Rx Instructions:
Start after 25 mcg patch prescription is completed.
Referrals:
Moe Pisano MD [Active] -
Tony Abad DO [Family Provider] -
Activity Restrictions/Additional Instructions:
Take bowel prep as prescribed. Eat a clear liquid diet and drink plenty of fluids.
Please follow-up with your family doctor and gastroenterology. Return to the ER with any worsening symptoms or severe pain.
Interventions
Interventions:
*Risk Screen - Suicide Last Done: 02/29/24 09:46
*General Assessment Last Done: 02/29/24 09:00
*Neglect/Abuse Screening Last Done: 02/29/24 09:46
ED- Fall Risk Assessment Last Done: 02/29/24 09:46
*ED COVID-19 Vaccine History Last Done: 02/29/24 09:00
HD-Adkvwd-Ttsgddfwxr Assessment Last Done: 02/29/24 09:46
Discharge Date and Time
Print Language: [place]
[2024-02-29 10:23] LABS: % Basophils 0.7 % (0-2); % Eosinophils 2.5 % (0-6); % Immature Granulocytes 0.4 % (0-0.5); % Lymphocytes 30.6 % (20.5-51.1); % Monocytes 11.9 % (1.7-9.3); % Neutrophils 53.9 % (42.2-75.2); Absolute Eosinophils 0.1 10^3/uL (0-0.7); Absolute Lymphocytes 0.9 10^3/uL (1.2-3.4); Absolute Monocytes 0.3 10^3/uL (0.1-0.6); Absolute Neutrophils 1.5 10^3/uL (1.4-6.5); Hematocrit 38.3 % (39.0-52.0); Hemoglobin 13.5 g/dL (13.0-18.0); Mean Corp Hgb Conc. 35.2 g/dL (33.0-37.0); Mean Corpuscular Hgb 29.6 pg (27.0-31.0); Mean Platelet Volume 11.3 fL (7.4-10.4); Nucleated Red Blood Cells % 0 % (-); Platelet Count 113 10^3/uL (130-400); Red Blood Cell Count 4.56 10^6/uL (4.70-6.10); Red Cell Dist. Width 12.8 % (11.5-14.5); White Blood Cell Count 2.8 10^3/uL (4.8-10.8)
[2024-02-29 10:46] LABS: ALT (SGPT) 14 U/L (0-50); AST (SGOT) 22 U/L (17-59); Albumin 4.4 g/dl (3.5-5.0); Alkaline Phosphatase 138 U/L (38-126); Blood Urea Nitrogen 21 mg/dl (9-20); Calcium 9.4 mg/dl (8.4-10.2); Carbon Dioxide 31 mmol/L (22-30); Chloride 100 mmol/L (98-107); Glucose 153 mg/dl (70-99); Lipase 54 U/L (23-300); Potassium 4.3 mmol/L (3.5-5.1); Sodium 137 mmol/L (135-145); Total Bilirubin 0.4 mg/dl (0.2-1.3); Total Protein 6.6 g/dl (6.3-8.2); eGFR > 60.00
[2024-02-29] MEDS: RELISTOR 12 MG SC (15:18)
[2024-02-29 15:41] VITALS: BP 119/76
== END 2024-02-29 15:50 | disposition home or self-care (01) ==
LOC: EMR 08:54
PROVIDERS: Physician Assistant; EMERGENCY PHYSICIAN Emergency Medicine; FAMILY PHYSICIAN Family Medicine Sports Medicine
DX: R10.13 Epigastric pain (principal); K59.00 Constipation, unspecified; K75.81 Nonalcoholic steatohepatitis (NASH); K43.9 Ventral hernia without obstruction or gangrene; E66.9 Obesity, unspecified; R56.9 Unspecified convulsions; E03.9 Hypothyroidism, unspecified; Z79.82 Long term (current) use of aspirin; Z88.6 Allergy status to analgesic agent
CPT/HCPCS: 99285; 96372; 74177; 80053; 83690; 85025; 93005; Q9967

== ENCOUNTER 2024-06-16 13:55 | Emergency (ER) | payer MEDICARE, SELFPAY ==
[2024-06-16 14:02] VITALS: BP 123/82
[2024-06-16 14:31] LABS: % Basophils 0.5 % (0-2); % Eosinophils 1.7 % (0-6); % Immature Granulocytes 0.2 % (0-0.5); % Monocytes 10.4 % (1.7-9.3); % Neutrophils 56.2 % (42.2-75.2); Absolute Eosinophils 0.1 10^3/uL (0-0.7); Absolute Lymphocytes 1.3 10^3/uL (1.2-3.4); Absolute Monocytes 0.4 10^3/uL (0.1-0.6); Absolute Neutrophils 2.3 10^3/uL (1.4-6.5); Hematocrit 39.7 % (39.0-52.0); Hemoglobin 14.3 g/dL (13.0-18.0); Mean Corpuscular Hgb 29.4 pg (27.0-31.0); Mean Corpuscular Volume 81.5 fL (80.0-94.0); Nucleated Red Blood Cells % 0 % (-); Red Blood Cell Count 4.87 10^6/uL (4.70-6.10); White Blood Cell Count 4.1 10^3/uL (4.8-10.8)
[2024-06-16 14:38] LABS: Mean Platelet Volume 11.4 fL (7.4-10.4); Platelet Count 122 10^3/uL (130-400)
[2024-06-16 14:42] LABS: Blood Urea Nitrogen 16 mg/dl (9-20); Calcium 9.7 mg/dl (8.4-10.2); Carbon Dioxide 24 mmol/L (22-30); Chloride 100 mmol/L (98-107); Glucose 200 mg/dl (70-99); Lipase 38 U/L (23-300); Sodium 138 mmol/L (135-145); eGFR > 60.00
[2024-06-16 16:33] VITALS: BP 122/75
--- NOTE | 2024-06-16 17:24 | ED.GENMED ---
History of Present Illness
General
Chief Complaint: Abdominal Pain
Time Seen by Provider: 06/16/24 16:42
History of Present Illness
History of Present Illness:
Patient is a 64-year-old male with history of hernia, BPH, seizure presenting to the emergency department with abdominal pain. Patient states for the past 8 days he has had nonbloody diarrhea. Has had decreased p.o. secondary to it. Was at his
primary care doctor today and on exam he did have significant left lower quadrant tenderness so his PCP sent him here for further evaluation. He denies any nausea vomiting. No fevers or chills. He does have hernias but no prior abdominal
surgeries. Has never happened to him before.. No urinary problems. No difficulty with his bowel movements.
Phy Exam
Physical Exam
Physical Exam:
GENERAL: in no acute distress
HEENT: normocephalic, extraocular movements intact, moist oral mucosa
NECK: normal inspection
RESPIRATORY: no respiratory distress, clear to auscultation bilaterally
CARDIOVASCULAR: regular rate and rhythm
ABDOMEN/: soft, non-distended, left lower quadrant tenderness to palpation, no rebound or guarding
EXTREMITIES: non-tender, no edema/swelling
NEUROLOGIC: awake and alert, moves all extremities
SKIN: warm
Course
Orders/Labs/Results
Orders:
Orders
06/16/24 14:13
Basic Metabolic Panel Urgent
Complete Blood Count/With Diff Urgent
Lipase Urgent
06/16/24 16:57
CT Abd/pelvis W Iv Cont Urgent
Comment:
Reason For Exam: llq pain
06/16/24 17:26
Stool Culture Urgent
[facility] Source: Feces/Stool
Specimen Description:
Abnormal Lab Results
06/16/24
14:13
WBC 4.1 L 10^3/uL
(4.8-10.8)
Plt Count 122 L 10^3/uL
(130-400)
MPV 11.4 H fL
(7.4-10.4)
Monocytes % 10.4 H %
(1.7-9.3)
Glucose 200 H mg/dl
(70-99)
06/16/24 14:13
06/16/24 14:13
Vital Signs
Initial and Last Documented VS:
Initial Vital Signs
Temp Pulse Resp BP Pulse Ox
98.0 F 75 16 123/82 98
06/16/24 14:02 06/16/24 14:02 06/16/24 14:02 06/16/24 14:02 06/16/24 14:02
Last Documented Vital Signs
Temp Pulse Resp BP Pulse Ox
98.0 F 69 18 122/75 97
06/16/24 14:02 06/16/24 16:33 06/16/24 16:33 06/16/24 16:33 06/16/24 16:33
MDM/Problems Addressed
Differential Diagnosis Includes:
Patient is a 64-year-old man presenting to the emergency department with about 1 week of diarrhea and now left-sided lower quadrant tenderness. Vitals are unremarkable and exam does show well-hydrated male with some left-sided lower quadrant
tenderness. Differential is broad but consists of diverticulitis versus enteritis versus hernia or infection. History exam not consistent with an acute abdomen to suggest obstruction or perforated viscus. Blood work obtained prior to my
evaluation is unremarkable. Will obtain CT scan of the abdomen. Will also try to obtain stool cultures.
*Critical Care Note
Total Time (30-74mins, 75-104mins- exclusive of procedures): Not Applicable
Update Note
Update Note:
CT scan with no evidence of diverticulitis. Patient did not have any further bowel movements here. Will discharge him at this time with strict return precautions. He will obtain outpatient stool culture and follow-up with PCP.
ED Attending Note
-
Portions of this chart may have been created with voice recognition software.� Occasional wrong word or��sound alike� substitutions may have occurred due to the inherent limitations of voice recognition software.
Discharge Plan
Departure
Patient Disposition: Home (Routine Discharge)
Date of Disposition: 06/16/24
Time of Disposition: 19:05
Patient with high blood pressure during this ER visit?: No
Discharge Problem:
Abdominal pain
Instructions: Abdominal Pain
Prescriptions:
No Action
fluoxetine [Prozac] 40 mg Capsule
40 mg PO DAILY
Rx Instructions:
total 60 mg daily
sucralfate [Carafate] 1 gram Tablet
1 g PO BIDPRN PRN (Reason: GI issues)
clonazepam 1 mg Tablet
1 mg PO BID
Patient Comments:
takes with Keppra
levothyroxine 50 mcg Tablet
50 mcg PO DAILY@0700
fluoxetine [Prozac] 20 mg Capsule
20 mg PO DAILY
Rx Instructions:
total 60mg daily
rizatriptan 5 mg Tablet
5 mg PO DAILYPRN MDD 20 mg PRN (Reason: Migraines)
Patient Comments:
Q2 hrs- max 4 tabs
levetiracetam [Keppra] 1,000 mg Tablet
1,500 mg PO BID
buprenorphine-naloxone 8-2 mg Tablet, Sublingual
1 tab SUBLINGUAL DAILY
Patient Comments:
'took 4 mg this am'
mupirocin 2 % ointment
1 applic intranasal BID Qty: 1 0RF
Rx Instructions:
Has from prior R TKA 08/2023.
multivitamin Tablet
1 tab PO DAILY
docusate sodium [Colace] 100 mg Capsule
100 mg PO BID
polyethylene glycol 3350 [Miralax] 17 gram Powder In Packet
17 g PO DAILY
aspirin 325 mg Tablet
325 mg PO DAILY Qty: 30 0RF
Rx Instructions:
Take daily x4 weeks for blood clot prevention.
fentanyl 25 mcg/hr Patch 72 Hour
1 patch transdermal Q72H Qty: 5 0RF
Rx Instructions:
Dx chronic pain syndrome
lidocaine 4 % Adhesive Patch,Medicated
3 patch topical DAILY Qty: 30 0RF
Rx Instructions:
Over the counter. 12 hours on, 12 hours off.
Apply to sides of left knee/thigh.
pregabalin 75 mg Capsule
150 mg PO TID Qty: 30 0RF
Rx Instructions:
When finished, resume home Gabapentin.
pantoprazole 40 mg Tablet,Delayed Release (Dr/Ec)
40 mg PO BID Qty: 1 0RF
Rx Instructions:
Home medication.
Take twice a day while on low dose Meloxicam.
ondansetron 4 mg tablet,disintegrating
4 mg PO Q6H PRN (Reason: nausea and vomiting) Qty: 30 0RF
hydromorphone [Dilaudid] 4 mg tablet
4 mg PO Q6H PRN (Reason: severe breakthrough pain) Qty: 30 0RF
Rx Instructions:
1 tab for severe breakthrough pain.
Dx total joint.
diazepam [Valium] 2 mg tablet
2 mg PO BID@1100,1600 Qty: 10 0RF
Rx Instructions:
Space out 3 hours apart from Clonazepam.
meloxicam 7.5 mg tablet
7.5 mg PO DAILY Qty: 7 0RF
Rx Instructions:
Take with food.
DO NOT take within 2 hours of Aspirin.
glipizide 5 mg tablet
5 mg PO BID Qty: 60 0RF
fentanyl 12 mcg/hr patch 72 hour
1 patch transdermal Q72H Qty: 5 0RF
Rx Instructions:
Start after 25 mcg patch prescription is completed.
peg 3350-electrolytes [GaviLyte-G] 236-22.74-6.74 -5.86 gram recon soln
240 ml PO Q10M Qty: 4000 0RF
Referrals:
Tony Abad DO [Family Provider] -
Interventions
Interventions:
*Risk Screen - Suicide Last Done: 06/16/24 14:02
*Neglect/Abuse Screening Last Done: 06/16/24 14:02
ED- Fall Risk Assessment Last Done: 06/16/24 16:44
EH-Bszxvd-Yvxkrphmei Assessment Last Done: 06/16/24 16:44
Discharge Date and Time
Print Language: ESTONIAN
[2024-06-16 19:11] VITALS: BP 120/74
== END 2024-06-16 19:33 | disposition home or self-care (01) ==
LOC: EMR 13:55
PROVIDERS: Emergency Medicine; EMERGENCY PHYSICIAN Student in an Organized Health Care Education/Training Program; FAMILY PHYSICIAN Family Medicine Sports Medicine
DX: R10.32 Left lower quadrant pain (principal); R19.7 Diarrhea, unspecified; N40.0 Benign prostatic hyperplasia without lower urinary tract symptoms; R56.9 Unspecified convulsions; Z88.6 Allergy status to analgesic agent
CPT/HCPCS: 99284; 74177; 80048; 83690; 85025; Q9967

== ENCOUNTER → 2024-10-21 10:10 | Outpatient (REF) | payer MEDICARE, SELFPAY | LOC: HWRAD 10:10 | PROVIDERS: ATTENDING PHYSICIAN Internal Medicine Gastroenterology; FAMILY PHYSICIAN Family Medicine Sports Medicine | DX: K75.81 Nonalcoholic steatohepatitis (NASH) (principal) | CPT/HCPCS: 76700 ==